=== PATIENT | female | born 1950 | race Caucasian/White ===

== ENCOUNTER 2020-05-10 08:07 | Outpatient (REF) | payer MEDICARE, OTHER, SELFPAY ==
--- NOTE | 2020-05-10 15:58 | MHC.AU.ANO ---
Adult Audiological Evaluation Date of Visit: 05/10/20 Reason for Appointment: Patient has begun to notice hearing difficulty in certain situations. She has trouble hearing her grandchildren and hearing when she is in noisy settings. She also noted difficulty with dialogue on TV. In 2010, patient received chemotherapy to treat ovarian cancer. One of the chemotherapy agents was carboplatin, which is potentially ototoxic. She reports that her hearing was tested prior to starting treatment, but it was not re-tested afterwards. Hearing Handicap Inventory: HHIE SCORE: 20 Based on HHIE score, patient has: Mild to moderate perceived hearing handicap Ear History: Ear Deformity: None Reported Recent Ear Drainage: None Reported Recent Ear Pain: None Reported Family History of Hearing Loss?: Yes: Mother, Grandfather, Uncle Recent Ear Infections: None Reported Ear Infections in Childhood: None Reported History of Ear Wax Buildup: Both Ears Previous Ear Surgery: None Reported Bothersome Tinnitus/Ringing/Noises in Ears: None Reported Ear used on the phone: Right Ear Blocked/Full Sensation in Ear(s): None Reported History of occupational noise exposure?: No History: No Medical History: Medical History: Hypertension, Ovarian Cancer in 2011, Tonsillectomy as a child Otoscopy: Right Ear: Completely occluded- cerumen removal performed Left Ear: Completely occluded- cerumen removal performed Tympanometry: Tympanometry performed due to: To assess integrity of the middle ear system Right Ear: Reduced Middle Ear Compliance (Type As) Left Ear: Reduced Middle Ear Compliance (Type As) Hearing Evaluation: Transducer(s) Used: Circumaural Headphones Method: Conventional Audiometry Stimuli Used: Pure Tones Right Ear: Description of Hearing: Borderline-normal sloping to severe sensorineural hearing loss Left Ear: Description of Hearing: Borderline-normal sloping to severe sensorineural hearing loss Speech Recognition Threshold (SRT): Method Used: Recorded Lists Stimuli Used: Spondee Words Right Ear: 40 dBHL Left Ear: 35 dBHL Word Discrimination: Method: Recorded Lists Word Lists Used: NU-6 Right Ear: 96% at 75 dBHL Left Ear: 96% at 75 dBHL Most Comfortable Level (MCL): Right Ear: 75 dBHL Left Ear: 75 dBHL Recommendations: Audiological re-evaluation in one year. Patient does not feel she is ready for amplification at this time. If she feels her hearing loss is starting to have more of an impact on her day-to-day life and communication, she is welcome to schedule a hearing aid evaluation. Cerumen removal was performed today. Slight irritation noted in right ear after procedure. No irritation in left ear. There is deepr cerumen that still remains in the canal; however, tympanic membrane can now be visualized bilaterally. Use of ear wax drops, such as EarWaxMD or Debrox, is advised to help dissolve the remaining deeper wax, and to prevent future occlusions. Diagnosis: Primary Diagnosis: H90.3 Bilateral Sensorineural Hearing Loss Services Performed: Comprehensive Audiological Evaluation (CPT 96888), Tympanometry (CPT 43430) Signature: Provider: Paras Hendricks, CCC-A
== END 2020-05-10 08:08 | disposition home or self-care (01) ==
LOC: HO.SH 08:07
PROVIDERS: Visit Provider Internal Medicine
DX: H90.3 Sensorineural hearing loss, bilateral (principal)
CPT/HCPCS: 92557; 92567

== ENCOUNTER 2020-06-20 06:58 | Outpatient (REF) | payer MEDICARE, OTHER, SELFPAY ==
[2020-06-20 08:17] LABS: MANUAL DIFF FLAG NO
[2020-06-20 08:25] LABS: Basophils Percent Auto 0.6 % (0-2); Eosinophils Absolute Auto 0.6 X10*3/uL (0.0-0.4); Eosinophils Percent Auto 8.3 % (0-4); Hemoglobin 13.1 g/dl (12.0-16.0); Imm Gran Abs Auto 0.03 X10*3/uL (0.00-0.03); Imm Gran Pct Auto 0.5 % (0.0-0.4); Lymphocytes Absolute Auto 2.3 X10*3/uL (1.2-4.9); Lymphocytes Percent Auto 34.4 % (20-40); Mean Corpuscular HGB Conc 32.8 g/dl (31.0-35.0); Mean Corpuscular Hemoglobin 29.7 pg (27.0-33.0); Mean Corpuscular Volume 90.7 fL (80-98); Monocytes Absolute Auto 0.5 X10*3/uL (0.1-1.2); Monocytes Percent Auto 7.5 % (2-11); Neutrophils Absolute Auto 3.2 X10*3/uL (2.0-8.3); Neutrophils Percent Auto 48.7 % (45-73); Platelet Count 326 X10*3/uL (160-400); Red Blood Count 4.41 X10*6/uL (4.20-5.50); Red Cell Distribution Width 12.8 % (11.0-16.0); White Blood Count 6.7 X10*3/uL (4.8-10.8)
[2020-06-20 08:46] LABS: Estimated Average Glucose 114 mg/dL; Hemoglobin A1c % 5.6 %
[2020-06-20 08:47] LABS: Alanine Aminotransferase 21 U/L (0-31); Albumin Level 4.3 g/dL (3.5-5.0); Alkaline Phosphatase 70 U/L (39-117); Anion Gap 13 (12-20); Aspartate Amino Transferase 21 U/L (5-31); Bilirubin Total 0.5 mg/dL (0.0-1.0); Blood Urea Nitrogen 27 mg/dL (9-16); Calcium 9.9 mg/dL (8.4-10.2); Carbon Dioxide 30 mmol/L (22-29); Chloride 104 mmol/L (96-108); Cholesterol 201 mg/dL; Estimated Glomerular Filt Rate > 60; Glucose Random 108 mg/dL (60-115); HDL Cholesterol 66 mg/dL; LDL Cholesterol Calculated 115 mg/dl; Potassium 4.4 mmol/L (3.3-5.1); Sodium 143 mmol/L (135-145); Total Protein 6.9 g/dL (6.5-8.0); Triglycerides 104 mg/dL
[2020-06-20 09:09] LABS: Thyroid Stimulating Hormone 1.52 uIU/mL (0.32-4.0); Vitamin D 25-OH Total 17.4 ng/mL (>30)
[2020-06-20 10:06] LABS: Vitamin B12 370 pg/mL (200-900)
== END 2020-06-20 06:59 | disposition home or self-care (01) ==
LOC: HO.LAB 06:58
PROVIDERS: PCP Internal Medicine; Visit Provider Internal Medicine
DX: R73.02 Impaired glucose tolerance (oral) (principal); I10 Essential (primary) hypertension; E78.00 Pure hypercholesterolemia, unspecified
CPT/HCPCS: 36415; 80053; 80061; 82306; 82607; 82746; 83036; 84439; 84443; 85025

== ENCOUNTER 2020-08-09 08:58 | Outpatient (REF) | payer MEDICARE, OTHER, SELFPAY ==
--- NOTE | ~2020-08-09 | MM_ITS ---
EXAMINATION: BONE DENSITOMETRY CLINICAL INDICATION: Other specified disorders of bone density and structure. COMPARISON: Previous BD dated 10/08/2017 and baseline BD dated 02/02/2012. TECHNIQUE: Using a [employer] DXA System (software version: 13.1) manufactured by [employer], dual-energy x-ray absorptiometry was performed of the lumbar spine and left hip. The images are of good technical quality. Summary results are attached. FINDINGS: AP SPINE L1-L4: Current: BMD 0.971 g/cm2, Z-score 0.1, T-score -1.7, osteopenia, 1.2% decrease from previous, 2.0% increase from baseline (<5% change is not significant). Prior: BMD 0.983 g/cm2. Baseline: BMD 0.952 g/cm2. LEFT FEMUR, NECK: Current: BMD 0.849 g/cm2, Z-score 0.5, T-score -1.4, osteopenia. Prior: BMD 0.870 g/cm2. Baseline: BMD 0.854 g/cm2. LEFT FEMUR, TOTAL: Current: BMD 0.849 g/cm2, Z-score 0.4, T-score -1.3, osteopenia, 2.7% decrease from previous, 0.7% decrease from baseline (<5% change is not significant). Prior: BMD 0.873 g/cm2. Baseline: BMD 0.855 g/cm2. IDENTIFIED RISK FACTORS: Thiazide, menopause, hysterectomy, bilateral oophorectomy. HISTORY OF FRACTURE: None listed. MEDICATIONS: Calcium supplements or multivitamin, vitamin D. MM/XR DEXA axial skeleton IMPRESSION: 1. DIAGNOSIS: Osteopenia based on the lowest T-score value of -1.7 in the lumbar spine applying World Health Organization criteria. 2. 10-YEAR FRACTURE RISK PREDICTION, FRAX: Major osteoporotic fracture (clinical spine, forearm, hip or shoulder) 10.3%. Hip fracture 1.5%. 3. Treatment Recommendations: NOF guidelines recommend consideration for treatment in postmenopausal women and men age 50 and older presenting with the following: -A hip or vertebral (clinical or morphometric) fracture. -T-score less than or equal to -2.5 at the femoral neck or spine after appropriate evaluation to exclude secondary causes. -Low bone mass at the hip or spine and a 10-year fracture probability by FRAX of greater than or equal to 3% for hip fracture or greater than or equal to 20% for major osteoporotic fracture based on the [place] adapted WHO algorithm. 4. Other Recommendations: All treatment decisions require clinical judgment and consideration of individual patient factors, including patient preferences, comorbidities, previous drug use, risk factors not captured in the FRAX model (e.g. frailty, falls, vitamin D deficiency, increased bone turnover, interval significant decline in bone density) and possible under or overestimation of fracture risk by FRAX. Additional medical evaluation for secondary cause of low bone mineral density may be appropriate. FUTURE SCAN RECOMMENDATION: People with diagnosed cases of osteoporosis or at high risk for fracture should have regular bone mineral density tests. For patients eligible for Medicare, routine testing is allowed once every 2 years. The testing frequency can be increased to one year for patients who have rapidly progressing disease, those who are receiving or discontinuing medical therapy to restore bone mass, or have additional risk factors.
== END 2020-08-09 08:59 | disposition home or self-care (01) ==
LOC: HO.MAMMO 08:58
PROVIDERS: PCP Internal Medicine; Visit Provider Internal Medicine
DX: Z13.820 Encounter for screening for osteoporosis (principal); M85.80 Other specified disorders of bone density and structure, unspecified site; Z78.0 Asymptomatic menopausal state; Z79.899 Other long term (current) drug therapy; Z98.890 Other specified postprocedural states
CPT/HCPCS: 77080

== ENCOUNTER 2021-09-24 06:01 | Outpatient (REF) | payer MEDICARE, OTHER, SELFPAY ==
[2021-09-24 06:16] LABS: MANUAL DIFF FLAG NO
[2021-09-24 07:33] LABS: Basophils Percent Auto 0.5 % (0-2); Eosinophils Absolute Auto 0.4 X10*3/uL (0.0-0.4); Eosinophils Percent Auto 5.2 % (0-4); Hematocrit 41.8 % (37.0-47.0); Hemoglobin 13.7 g/dl (12.0-16.0); Imm Gran Abs Auto 0.05 X10*3/uL (0.00-0.03); Imm Gran Pct Auto 0.7 % (0.0-0.4); Lymphocytes Absolute Auto 2.2 X10*3/uL (1.2-4.9); Lymphocytes Percent Auto 29.2 % (20-40); Mean Corpuscular HGB Conc 32.8 g/dl (31.0-35.0); Mean Corpuscular Hemoglobin 29.5 pg (27.0-33.0); Mean Corpuscular Volume 90.1 fL (80.0-98.0); Mean Platelet Volume 10.1 fL (9.4-12.3); Monocytes Absolute Auto 0.6 X10*3/uL (0.1-1.2); Monocytes Percent Auto 7.7 % (2-11); Neutrophils Absolute Auto 4.4 x10*3/uL (2.0-8.3); Neutrophils Percent Auto 56.7 % (45-73); Platelet Count 327 X10*3/uL (160-400); Red Blood Count 4.64 X10*6/uL (4.20-5.50); Red Cell Distribution Width 13.4 % (11.0-16.0); White Blood Count 7.7 X10*3/uL (4.8-10.8)
[2021-09-24 07:43] LABS: Estimated Average Glucose 117 mg/dL; Hemoglobin A1c % 5.7 %
[2021-09-24 07:55] LABS: Alanine Aminotransferase 16 U/L (0-31); Albumin Level 4.5 g/dL (3.5-5.0); Alkaline Phosphatase 76 U/L (39-117); Anion Gap 15 (12-20); Aspartate Amino Transferase 17 U/L (5-31); Bilirubin Total 0.6 mg/dL (0.0-1.0); Blood Urea Nitrogen 22 mg/dL (9-16); Calcium 9.7 mg/dL (8.4-10.2); Carbon Dioxide 27 mmol/L (22-29); Chloride 103 mmol/L (96-108); Cholesterol 218 mg/dL; Estimated Glomerular Filt Rate > 60; Glucose Random 107 mg/dL (60-115); HDL Cholesterol 69 mg/dL; LDL Cholesterol Calculated 122 mg/dl; Potassium 4.4 mmol/L (3.3-5.1); Sodium 141 mmol/L (135-145); Total Protein 7.3 g/dL (6.5-8.0); Triglycerides 139 mg/dL
[2021-09-24 08:20] LABS: Free T4 (Free Thyroxine) 0.93 ng/dL (0.71-1.85); Thyroid Stimulating Hormone 1.78 uIU/mL (0.32-4.0); Vitamin D 25-OH Total 20.9 ng/mL (>30)
[2021-09-24 08:28] LABS: Folate 14.2 ng/mL (> or = 4.0); Vitamin B12 355 pg/mL (200-900)
== END 2021-09-24 06:02 | disposition home or self-care (01) ==
LOC: HO.LAB 06:01
PROVIDERS: PCP Internal Medicine; Visit Provider Internal Medicine
DX: R73.02 Impaired glucose tolerance (oral) (principal); E78.00 Pure hypercholesterolemia, unspecified
CPT/HCPCS: 36415; 80053; 80061; 82306; 82607; 82746; 83036; 84439; 84443; 85025

== ENCOUNTER 2022-10-05 10:04 | Outpatient (AMB) | payer MEDICARE, OTHER, SELFPAY ==
[2022-10-05 10:07] VITALS: BP 126/82; PULSE 94; O2SAT 97; BMI 24.3
--- NOTE | 2022-10-05 10:07 | AM.OFFVISMDC ---
Intake Vital Signs 10/05/22 10:07 Height 5 ft 2 in Weight 133 lb BMI 24.3 BP 126/82 Blood Pressure Location Lt brachial Position Sitting Pulse 94 Pulse Source Pulse Oximeter Temp Source Skin Pulse Oximetry (%) 97 Oxygen Delivery Method Room Air Intake Visit Reasons: SWV Allergies No Known Allergies Allergy (Verified 10/03/21 16:02) Medication List - Last Reconciled 10/05/22 by Mikel Stewart MD Advair Diskus 250-50 mcg/dose (fluticasone propion-salmeterol) 1 ea PO BID NS albuterol sulfate 90 mcg/actuation (ProAir HFA) 2 puffs PO Q4H PRN amlodipine 5 mg PO DAILY atorvastatin 10 mg PO DAILY calcium carbonate (Calcium) 600 mg PO BID cholecalciferol (vitamin D3) 50 mcg PO DAILY hydrochlorothiazide 12.5 mg PO QAM Fall Risk Assessment Fall risk assessment: No Falls in past year Date Fall Risk Assessed: 10/05/22 HPI SWV HPI Details 72-year-old female with hypertension, asthma, hypercholesterolemia, impaired glucose tolerance osteopenia bone density done July 2020 coming in for annual well visit. Patient was last seen last year. Mammogram is due colonoscopy is due. Review of the notes had a CT scan done May 2022 of the abdomen impression of no evidence of recurrent or metastatic disease new 1.1 cm nodule on the right posterior bladder wall advised cystoscopy suspected severe spinal stenosis L4-L5. [facility] Medical History (Updated 10/05/22 @ 10:41 by Mikel Stewart MD) Asthma Hypercholesterolemia Hypertension Personal history of malignant neoplasm of other female genital organs Vitamin D deficiency Surgical History History of cataract surgery History of tonsillectomy S/P [facility] Social History (Updated 10/05/22 @ 10:40 by Mikel Stewart MD) Alcohol intake: current Alcohol intake frequency: a few times a week Patient Tobacco Use Status: Former Tobacco user Years Smoked: quit 1979 Questionnaire Medicare Wellness Checkup [age] What gender do you identify with?: female During the past 4 weeks, how much have you been bothered by emotional problems such as feeling anxious, depressed, irritable, sad or downhearted, and blue?: not at all During the past 4 weeks, has your physical & emotional health limited your social activities with family, friends, neighbors, or groups?: not at all During the past 4 weeks, how much bodily pain have you generally had?: no pain During the past 4 weeks, was someone available to help you if you needed & wanted help?: yes, as much as I wanted During the past 4 weeks, what was the hardest physical activity you could do for at least 2 minutes?: moderate Can you get to places out of walking distance without help? (For eg., can you travel alone on buses, taxis or drive your car?): Yes Can you go shopping for groceries or clothes without someone's help?: Yes Can you prepare your own meals?: Yes Can you do your housework without help?: Yes Because of any health problems, do you need the help of another person with your personal care needs such as eating, bathing, dressing or getting around the house?: No Can you handle your own money without help?: Yes During the past 4 weeks, how would you rate your health in general?: excellent During the past 4 weeks how have things been going for you?: very well; could hardly better Are you having difficulties driving your car?: no Do you always fasten your seat belt when you are in a car?: yes, usually During past 4 weeks, have you been bothered by the following: never: Falling or dizzy when standing up, Sexual problems?, Trouble eating well?, Teeth or denture problems?, Problems using the telephone? and Tiredness or fatigue? Have you fallen 2 or more times in the past year?: No Are you afraid of falling?: No Are you a smoker?: no During the past 4 weeks, how many drinks of wine, beer, or other alcoholic beverages did you have?: 1 drink or less per week Do you exercise for about 20 minutes 3 or more times a week?: yes, most of the time Have you been given information to help with the following?: no: Hazards in your house that might hurt you? and no: Keeping track of your medications? How often do you have trouble taking medicines the way you have been told to take them?: I always take medicine as prescribed How confident are you that you can control & manage most of your health problems?: very confident What is your race?: White PHQ-9 Over the last 2 weeks, how often have you been bothered by any of the following problems? 1. Little interest or pleasure in doing things: not at all 2. Feeling down, depressed, or hopeless: not at all 3. Trouble falling or staying asleep, or sleeping too much: not at all 4. Feeling tired or having little energy: not at all 5. Poor appetite or overeating: not at all 6. Feeling bad about yourself - or that you are a failure or have let yourself or your family down: not at all 7. Trouble concentrating on things, such as reading the newspaper or watching television: not at all 8. Moving or speaking so slowly that other people could have noticed. Or the opposite - being so fidgety or restless that you have been moving around a lot more than usual: not at all Depression Screening Interpretation: Negative Source: Developed by Drs. Luis Massey, Cassia Torres, Thiago Leung and colleagues, with an educational claudette from [employer]. ATILIO-7 AMB Questionnaire ATILIO-7 Date ATILIO - 7 assessed: 10/03/21 Feeling nervous, anxious, or on edge: 0 = Not at all Not being able to stop or control worryin = Not at all Worrying too much about different things: 0 = Not at all Trouble relaxin = Not at all Being so restless that it is hard to sit still: 0 = Not at all Becoming easily annoyed or irritable: 0 = Not at all Feeling afraid as if something awful might happen: 0 = Not at all Total ATILIO-7 score (0-4 normal; 5-9 mild; 10-14 moderate; 15-21 severe): 0 Source: Developed by Drs. Luis Massey, Cassia Torres, Thiago Leung and colleagues, with an educational claudette from [employer]. Thrive Questionnaire Date Thrive assessed: 10/03/21 Review of Systems Const Denies poor appetite and Denies weakness Eyes Denies no additional complaints ENT Reports Normal hearing present, Denies dizziness, Denies nasal congestion, Denies tinnitus and Denies sore throat Card Denies chest pain, Denies syncope, Denies rapid heart rate and Denies dyspnea Resp Denies cough and Denies dyspnea GI Denies change in stool character, Reports constipation, Denies diarrhea, Denies nausea and Denies vomiting Denies urinary frequency, Denies difficulty voiding and Denies dysuria Neuro Reports Normal hearing present, Denies confusion, Denies dizziness, Denies syncope and Denies weakness Psych Denies confusion Physical Exam Vital Signs: Last Vital Signs Pulse 94 10/05/22 10:07 BP 126/82 10/05/22 10:07 Pulse Ox 97 10/05/22 10:07 Oxygen Delivery Method Room Air 10/05/22 10:07 BMI result Body Mass Index 24.3 Const General: No confusion Orientation/consciousness: No confusion HEENT Other: impacted cerumen bilateral Head: Yes normocephalic Ears: external ears normal Face and sinus: Yes normal facial exam Mouth: moist mucous membranes Throat: Yes tonsils normal Eyes Conjunctivae: conjunctivae normal Pupils: Equal, round and reactive pupils present and Pupil accommodation reflex normal Direct Ophthalmoscopy: normal light reflex Neck Neck: No lymphadenopathy Thyroid: Thyroid normal Chest Chest palpation & inspection: normal inspection of the chest Resp Effort & Inspection: normal respiratory effort and no audible wheezes Auscultation: clear to auscultation bilaterally, no crackles, no wheezes and lung sounds not diminished Cardio Rate: regular rate Rhythm: regular rhythm Peripheral pulses: radial pulses present and dorsalis pedis present GI Palpation (GI): no masses Auscultation: normal bowel sounds and normoactive bowel sounds Rectal Exam - Female: deferred Skin General skin exam: no rashes or lesions noted Rashes: no rashes Neuro General: No confusion Cranial nerves: Yes Equal, round and reactive pupils present and Yes Normal hearing present Cognition (Neuro): normal cognition Gait exam (Neuro): Normal gait present Motor exam (neuro): 5/5 motor strength present throughout Deep tendon reflexes (DTR's): Right brachioradialis reflex intensity grade: 2+, Left brachioradialis reflex intensity grade: 2+, Right patellar reflex intensity grade: 2+ and Left patellar reflex intensity grade: 2+ Extrem General: No edema Assessment & Plan Assessment & Plan (1) Medicare annual wellness visit, subsequent: Code(s): Z00.00 - Encounter for general adult medical examination without abnormal findings (2) Personal history of malignant neoplasm of other female genital organs: Comment: [place]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 Harding, Dr. Esquivel May 2014 [address] scan August 2014 every 6 months, February 2016 clinical trial, CT scan abd [facility] 05/2020 Code(s): Z85.44 - Personal history of malignant neoplasm of other female genital organs Plan: CT scan done May 2022. (3) Osteopenia: Code(s): M85.80 - Other specified disorders of bone density and structure, unspecified site Plan: Discussed that patient is due for bone density (4) Impaired glucose tolerance: Code(s): R73.02 - Impaired glucose tolerance (oral) Plan: Decrease the amount of carbohydrate intake, pasta, bread, rice and potatoes are all sugar and that is aside from all the sweet stuff, remember that fruits are good but they are Sweet also. (5) Hypercholesterolemia: Code(s): E78.00 - Pure hypercholesterolemia, unspecified Plan: Avoid fried foods, chicken skin, eggs, butter margarine, pastries and meat. Be it pork or beef they have a lot of cholesterol patient is on atorvastatin 10 mg once a day (6) Asthma: Comment: Mild intermittent Code(s): J45.909 - Unspecified asthma, uncomplicated Qualifiers: Asthma severity: mild Asthma persistence: intermittent Asthma complication type: uncomplicated Qualified Code(s): J45.20 - Mild intermittent asthma, uncomplicated Plan: Continue with inhaler patient is on Advair rinse mouth after using (7) Hypertension: Code(s): I10 - Essential (primary) hypertension Qualifiers: Hypertension type: essential hypertension Qualified Code(s): I10 - Essential (primary) hypertension Plan: Continue with blood pressure medication. Decrease salt intake and exercise patient is taking amlodipine 5 mg once a day and hydrochlorothiazide 12.5 mg once a day (8) Lesion of bladder: Comment: Dr. Coyle 06/18/2022 bladder cancer - cystoscopy q 3 months Code(s): N32.9 - Bladder disorder, unspecified (9) Bladder cancer: Comment: Dr. Coyle 06/18/2022 bladder cancer - cystoscopy q 3 months Code(s): C67.9 - Malignant neoplasm of bladder, unspecified (10) Colon cancer screening: Code(s): Z12.11 - Encounter for screening for malignant neoplasm of colon (11) Hearing difficulty: Code(s): H91.90 - Unspecified hearing loss, unspecified ear (12) Impacted cerumen of both ears: Code(s): H61.23 - Impacted cerumen, bilateral Plan: will schedule for ear irrigation Orders: Orders XR DEXA axial skeleton Today M81.0 - Age-related osteoporosis without current pathological fracture, M85.80 - Other specified disorders of bone density and structure, unspecified site Vitamin B12 and Folate Today E78.00 - Pure hypercholesterolemia, unspecified Comprehensive Met. Panel Today R73.02 - Impaired glucose tolerance (oral) Hemoglobin A1c Today R73.02 - Impaired glucose tolerance (oral) Lipid Panel Today E78.00 - Pure hypercholesterolemia, unspecified Free T4 (Free Thyroxine) Today E78.00 - Pure hypercholesterolemia, unspecified Thyroid Stimulating Hormone Today E78.00 - Pure hypercholesterolemia, unspecified Vitamin D 25-OH Total Today E78.00 - Pure hypercholesterolemia, unspecified Complete Blood Count Auto Diff Today R73.02 - Impaired glucose tolerance (oral) Referrals Gastroenterology Referral Z12.11 - Encounter for screening for malignant neoplasm of colon Speech and Hearing Referral H91.90 - Unspecified hearing loss, unspecified ear Quality Reporting (2019) Fall Risk Screening ([facility] 139) Last assessed Fall Risk: 10/05/22 Fall risk assessment: No Falls in past year Coding Level of Care Code Medicare Subsequent (G0439) Diagnoses Medicare annual wellness visit, subsequent Z00.00 Personal history of malignant neoplasm of other female genital organs Z85.44 Osteopenia M85.80 Impaired glucose tolerance R73.02 Hypercholesterolemia E78.00 Asthma J45.20 Asthma severity: mild Asthma persistence: intermittent Asthma complication type: uncomplicated Hypertension I10 Hypertension type: essential hypertension Lesion of bladder N32.9 Bladder cancer C67.9 Colon cancer screening Z12.11 Hearing difficulty H91.90 Impacted cerumen of both ears H61.23
== END 2022-10-05 11:19 | disposition home or self-care (01) ==
PROVIDERS: Visit Provider Internal Medicine
DX: Z00.00 Encounter for general adult medical examination without abnormal findings (principal); Z85.44 Personal history of malignant neoplasm of other female genital organs; J45.20 Mild intermittent asthma, uncomplicated; I10 Essential (primary) hypertension; C67.9 Malignant neoplasm of bladder, unspecified; R73.02 Impaired glucose tolerance (oral); M85.80 Other specified disorders of bone density and structure, unspecified site; E78.00 Pure hypercholesterolemia, unspecified; N32.9 Bladder disorder, unspecified; Z12.11 Encounter for screening for malignant neoplasm of colon; H61.23 Impacted cerumen, bilateral
CPT/HCPCS: G0439

== ENCOUNTER 2022-10-09 07:46 | Outpatient (REF) | payer MEDICARE, OTHER, SELFPAY ==
[2022-10-09 07:57] LABS: MANUAL DIFF FLAG NO
[2022-10-09 08:12] LABS: Basophils Absolute Auto 0.1 X10*3/uL (0.0-0.2); Basophils Percent Auto 0.8 % (0-2); Eosinophils Absolute Auto 0.6 X10*3/uL (0.0-0.4); Eosinophils Percent Auto 7.6 % (0-4); Hematocrit 41.6 % (37.0-47.0); Hemoglobin 13.8 g/dl (12.0-16.0); Imm Gran Abs Auto 0.02 X10*3/uL (0.00-0.03); Imm Gran Pct Auto 0.3 % (0.0-0.4); Lymphocytes Absolute Auto 1.7 X10*3/uL (1.2-4.9); Lymphocytes Percent Auto 23.4 % (20-40); Mean Corpuscular HGB Conc 33.2 g/dl (31.0-35.0); Mean Corpuscular Hemoglobin 29.7 pg (27.0-33.0); Mean Corpuscular Volume 89.5 fL (80.0-98.0); Mean Platelet Volume 9.8 fL (9.4-12.3); Monocytes Absolute Auto 0.5 X10*3/uL (0.1-1.2); Monocytes Percent Auto 6.8 % (2-11); Neutrophils Absolute Auto 4.4 x10*3/uL (2.0-8.3); Neutrophils Percent Auto 61.1 % (45-73); Platelet Count 300 X10*3/uL (160-400); Red Blood Count 4.65 X10*6/uL (4.20-5.50); Red Cell Distribution Width 12.9 % (11.0-16.0); White Blood Count 7.2 X10*3/uL (4.8-10.8)
[2022-10-09 08:19] LABS: Estimated Average Glucose 114 mg/dL; Hemoglobin A1c % 5.6 %
[2022-10-09 08:51] LABS: Alanine Aminotransferase 18 U/L (0-31); Albumin Level 4.3 g/dL (3.5-5.0); Alkaline Phosphatase 81 U/L (39-117); Anion Gap 14 (12-20); Aspartate Amino Transferase 18 U/L (5-31); Bilirubin Total 0.5 mg/dL (0.0-1.0); Blood Urea Nitrogen 19 mg/dL (9-16); Calcium 9.9 mg/dL (8.4-10.2); Carbon Dioxide 28 mmol/L (22-29); Chloride 106 mmol/L (96-108); Cholesterol 201 mg/dL; Estimated Glomerular Filt Rate > 60; Glucose Random 117 mg/dL (60-115); HDL Cholesterol 65 mg/dL; LDL Cholesterol Calculated 112 mg/dl; Potassium 3.8 mmol/L (3.3-5.1); Sodium 144 mmol/L (135-145); Total Protein 7.2 g/dL (6.5-8.0); Triglycerides 121 mg/dL
[2022-10-09 09:07] LABS: Free T4 (Free Thyroxine) 0.85 ng/dL (0.71-1.85); Thyroid Stimulating Hormone 1.62 uIU/mL (0.32-4.0); Vitamin D 25-OH Total 24.9 ng/mL (>30)
[2022-10-09 09:20] LABS: Folate 13.1 ng/mL (> or = 4.0); Vitamin B12 572 pg/mL (200-900)
== END 2022-10-09 07:47 | disposition home or self-care (01) ==
LOC: HO.LAB 07:46
PROVIDERS: PCP Internal Medicine; Visit Provider Internal Medicine
DX: R73.02 Impaired glucose tolerance (oral) (principal); E78.00 Pure hypercholesterolemia, unspecified; M85.80 Other specified disorders of bone density and structure, unspecified site; E55.9 Vitamin D deficiency, unspecified
CPT/HCPCS: 36415; 80053; 80061; 82306; 82607; 82746; 83036; 84439; 84443; 85025

== ENCOUNTER 2022-10-19 13:13 | Outpatient (AMB) | payer MEDICARE, OTHER, SELFPAY ==
--- NOTE | 2022-10-19 13:24 | MHC.PC.OV ---
Vital Signs 10/19/22 13:38 Height 5 ft 2 in Weight 134 lb BMI 24.5 BP 104/66 Blood Pressure Location Lt brachial Position Sitting Pulse 82 Pulse Source Pulse Oximeter Pulse Oximetry (%) 99 Oxygen Delivery Method Room Air Intake Visit Reasons: ear irrigation Intake Note: pt is here for ear irrigation. 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 by: Self / Same As Patient Allergies No Known Allergies Allergy (Verified 10/19/22 13:42) Tobacco use date assessed: 10/19/22 Fall risk assessment: No Falls in past year Last assessed Fall Risk: 10/19/22 Dental Screening Dental Screen Date: 10/19/22 Did you have a dental visit in the last 12 months?: No Did you have a dental problem in the last 6 months where you did not have access to dental care?: No Was dental information given to patient?: Patient declined HPI HPI Comments History of Present Illness Details 72-year-old female with hypertension, asthma, hypercholesterolemia, impaired glucose tolerance osteopenia. APtient of Dr. Stewart presents today for bilateral ear lavage. [facility] Medical History (Updated 10/05/22 @ 10:41 by Mikel Stewart MD) Asthma Hypercholesterolemia Hypertension Personal history of malignant neoplasm of other female genital organs Vitamin D deficiency Surgical History History of cataract surgery History of tonsillectomy S/P [facility] Social History Housing: House Alcohol intake: current Alcohol intake frequency: a few times a week Patient Tobacco Use Status: Former Tobacco user Years Smoked: quit 1979 e-Cigarette/Vaping Use: Never Used service: No Current occupational status: retired Cognitive needs: No Hearing needs: No Vision needs: No Questionnaire Thrive Questionnaire Date Thrive assessed: 10/03/21 ATILIO-7 AMB Questionnaire ATILIO-7 Date ATILIO - 7 assessed: 10/03/21 Source: Developed by Drs. Luis Massey, Cassia Torres, Thiago Leung and colleagues, with an educational claudette from [employer]. Review of Systems ENT Denies dizziness, Denies otalgia and Denies disequilibrium Card Reports no additional complaints Resp Reports no additional complaints Neuro Denies dizziness and Denies disequilibrium Physical exam (Primary Care) Vital Signs: Last Vital Signs Pulse 82 10/19/22 13:38 BP 104/66 10/19/22 13:38 Pulse Ox 99 10/19/22 13:38 Oxygen Delivery Method Room Air 10/19/22 13:38 BMI result Body Mass Index 24.5 Tobacco/Smoking Status: Tobacco use Status Tobacco use date assessed 10/19/22 10/19/22 13:44 Patient Tobacco Use Status Former Tobacco user 10/19/22 13:25 e-Cigarette/Vaping Use Never Used 10/19/22 13:44 Thrive Assessment: Date of Thrive Assessment Date Thrive assessed 10/03/21 10/19/22 13:25 HENMT Head: Yes normocephalic and Yes atraumatic Ears: external ears normal and TM's normal bilaterally Face and sinus: Yes normal facial exam Eyes Conjunctivae: conjunctivae normal EOM: EOMs intact bilaterally Cardio Rate: regular rate Rhythm: regular rhythm Peripheral pulses: radial pulses present and dorsalis pedis present GI Inspection: Yes normal to inspection Palpation (GI): Soft to palpation, nontender and No hepatosplenomegaly present Auscultation: normoactive bowel sounds Office Procedures Cerumen Removal From which ear canal was the cerumen removed: bilateral Removal: irrigation Notes: patient tolerated procedure well [id number] Irrigation/Lavage Assessment and Plan Assessment & Plan (1) Hearing difficulty: Code(s): H91.90 - Unspecified hearing loss, unspecified ear Plan: hearing test previously ordered. (2) Cerumen impaction: Code(s): H61.20 - Impacted cerumen, unspecified ear Plan: Bilateral ears flushed, Left canal clear TM pearly, Right canal continues to be occluded with cerumen. Patient aba. procedure well, Denies pain, lightheadedness or dizziness. Plan Keep scheduled follow up with pcp or follow up sooner if needed. Coding Level of Care Code Est Pt Level 3 (91265) Diagnoses Hearing difficulty H91.90 Cerumen impaction H61.20 CPT Codes Office Procedure - CPT: 69905-Kfj Irrigation/Lavage ([id number])
[2022-10-19 13:38] VITALS: BP 104/66; PULSE 82; O2SAT 99; BMI 24.5
== END 2022-10-19 14:04 | disposition home or self-care (01) ==
PROVIDERS: PCP Internal Medicine; Visit Provider Nurse Practitioner Family
DX: H61.23 Impacted cerumen, bilateral (principal)
CPT/HCPCS: 69209; 99213

== ENCOUNTER 2022-10-23 09:20 | Outpatient (REF) | payer MEDICARE, OTHER, SELFPAY ==
--- NOTE | ~2022-10-23 | MM_ITS ---
EXAMINATION: BONE DENSITOMETRY CLINICAL INDICATION: Osteoporosis. COMPARISON: Previous BD dated 08/09/2020 and baseline BD dated 02/02/2012. TECHNIQUE: Using a [employer] DXA System (software version: 13.1) manufactured by [employer], dual-energy x-ray absorptiometry was performed of the lumbar spine and left hip. The images are of good technical quality. Summary results are attached. FINDINGS: LEFT FEMUR, NECK: Current: BMD 0.781 g/cm2, Z-score 0.1, T-score -1.9, osteopenia. Prior: BMD 0.849 g/cm2. Baseline: BMD 0.854 g/cm2. LEFT FEMUR, TOTAL: Current: BMD 0.860 g/cm2, Z-score 0.6, T-score -1.2, osteopenia, 1.3% increase from previous, 0.6% increase from baseline (<5% change is not significant). Prior: BMD 0.849 g/cm2. Baseline: BMD 0.855 g/cm2. AP SPINE L1-L4: Current: BMD 0.899 g/cm2, Z-score -0.4, T-score -2.3, osteopenia, 7.4% decrease from previous, 5.6% decrease from baseline (<5% change is not significant). Prior: BMD 0.971 g/cm2. Baseline: BMD 0.952 g/cm2. IDENTIFIED RISK FACTORS: Menopause, bilateral oophorectomy, hysterectomy, Thiazide. HISTORY OF FRACTURE: Wrist. MEDICATIONS: Calcium, vitamin D. MM/XR DEXA axial skeleton IMPRESSION: 1. DIAGNOSIS: Osteopenia based on the lowest T-score value of -2.3 in the lumbar spine applying World Health Organization criteria. 2. 10-YEAR FRACTURE RISK PREDICTION, FRAX: Major osteoporotic fracture (clinical spine, forearm, hip or shoulder) 12.5%. Hip fracture 2.9%. 3. Treatment Recommendations: NOF guidelines recommend consideration for treatment in postmenopausal women and men age 50 and older presenting with the following: -A hip or vertebral (clinical or morphometric) fracture. -T-score less than or equal to -2.5 at the femoral neck or spine after appropriate evaluation to exclude secondary causes. -Low bone mass at the hip or spine and a 10-year fracture probability by FRAX of greater than or equal to 3% for hip fracture or greater than or equal to 20% for major osteoporotic fracture based on the [place] adapted WHO algorithm. 4. Other Recommendations: All treatment decisions require clinical judgment and consideration of individual patient factors, including patient preferences, comorbidities, previous drug use, risk factors not captured in the FRAX model (e.g. frailty, falls, vitamin D deficiency, increased bone turnover, interval significant decline in bone density) and possible under or overestimation of fracture risk by FRAX. Additional medical evaluation for secondary cause of low bone mineral density may be appropriate. FUTURE SCAN RECOMMENDATION: People with diagnosed cases of osteoporosis or at high risk for fracture should have regular bone mineral density tests. For patients eligible for Medicare, routine testing is allowed once every 2 years. The testing frequency can be increased to one year for patients who have rapidly progressing disease, those who are receiving or discontinuing medical therapy to restore bone mass, or have additional risk factors.
== END 2022-10-23 09:21 | disposition home or self-care (01) ==
LOC: HO.MAMMO 09:20
PROVIDERS: PCP Internal Medicine; Visit Provider Internal Medicine
DX: Z13.820 Encounter for screening for osteoporosis (principal); M81.0 Age-related osteoporosis without current pathological fracture; Z78.0 Asymptomatic menopausal state; M85.80 Other specified disorders of bone density and structure, unspecified site
CPT/HCPCS: 77080

== ENCOUNTER → 2022-10-23 09:30 | Outpatient (BNV) | payer MEDICARE, OTHER, SELFPAY | PROVIDERS: PCP Internal Medicine; Visit Provider Radiology Diagnostic Radiology | DX: M85.89 Other specified disorders of bone density and structure, multiple sites (principal) | CPT/HCPCS: 77080 ==

== ENCOUNTER 2023-03-30 09:26 | Day surgery (SDC) | payer MEDICARE, OTHER, SELFPAY ==
[2023-03-26 11:30] VITALS: BMI 25.7
--- NOTE | 2023-03-29 09:23 | HO.ANESPROP2 ---
Documented by User: Eli Peres NP 03/29/23 09:23 HPI - Anesthesia Eval Consult details Narrative: 72yo F for Colonoscopy PMFSH Active Problems Active Problems: All Active Problems (Updated 03/26/23 @ 11:34 by Sarai Mcelroy RN) Hearing difficulty (Acute) Colon cancer screening (Acute) Bladder cancer (Acute) Lesion of bladder (Acute) Medicare annual wellness visit, subsequent (Acute) COVID-19 virus infection (Acute) Distal radius fracture, right (Acute) Impacted cerumen of both ears (Acute) Osteopenia (Acute) Impaired glucose tolerance (Acute) Medicare annual wellness visit, initial (Acute) Hearing loss (Acute) Personal history of malignant neoplasm of other female genital organs (Acute) Hypercholesterolemia (Acute) Asthma (Acute) Hypertension (Acute) Past Medical History Medical History (Updated 03/26/23 @ 11:34 by Sarai Mcelroy RN) Impaired glucose tolerance Bladder cancer Osteopenia Personal history of malignant neoplasm of other female genital organs Vitamin D deficiency Hypercholesterolemia Asthma Hypertension Surgical History Surgical History H/O colonoscopy Hx of cystoscopy History of cataract surgery History of tonsillectomy S/P REED-BSO Social History Social History (Updated 03/26/23 @ 11:30 by Sarai Mcelroy RN) Housing: House Alcohol intake: current Alcohol intake frequency: a few times a week Patient Tobacco Use Status: Former Tobacco user Years Smoked: quit 1979 e-Cigarette/Vaping Use: Never Used Are you DNR?: No Advance Directives: No Advance Directives Information Provided: Yes Nutrition Risks: No Nutritional Risk service: No Current occupational status: retired Cognitive needs: No Hearing needs: No Vision needs: No Meds Allergies Allergy/AdvReac Type Severity Reaction Status Date / Time No Known Allergies Allergy Verified 03/30/23 10:01 Home Medications Medication Instructions Recorded Confirmed Last Taken Type calcium carbonate 600 mg calcium 600 mg PO BID 05/31/20 03/26/23 Unknown History (1,500 mg) tablet (Calcium) cholecalciferol (vitamin D3) 50 50 mcg PO DAILY 05/31/20 03/26/23 Unknown History mcg (2,000 unit) capsule Exam Height,Weight and Vital Signs: Height 5 ft 1 in Weight 61.689 kg Assessment and Plan Assessment Anesthesia Assessment: Chart Reviewed Documented by User: Valerie Soares MD 03/30/23 10:49 PMF Past Medical History Medical History (Updated 03/26/23 @ 11:34 by Sarai Mcelroy RN) Impaired glucose tolerance Bladder cancer Osteopenia Personal history of malignant neoplasm of other female genital organs Vitamin D deficiency Hypercholesterolemia Asthma Hypertension Family History Family history of problems with anesthesia: No Surgical History Surgical History H/O colonoscopy Hx of cystoscopy History of cataract surgery History of tonsillectomy S/P REED-BSO History of Problems with Anesthesia: No Social History Social History (Updated 03/26/23 @ 11:30 by Sarai Mcelroy RN) Housing: House Alcohol intake: current Alcohol intake frequency: a few times a week Patient Tobacco Use Status: Former Tobacco user Years Smoked: quit 1979 e-Cigarette/Vaping Use: Never Used Are you DNR?: No Advance Directives: No Advance Directives Information Provided: Yes Nutrition Risks: No Nutritional Risk service: No Current occupational status: retired Cognitive needs: No Hearing needs: No Vision needs: No Meds Allergies Allergy/AdvReac Type Severity Reaction Status Date / Time No Known Allergies Allergy Verified 03/30/23 10:01 Home Medications Medication Instructions Recorded Confirmed Last Taken Type calcium carbonate 600 mg calcium 600 mg PO BID 05/31/20 03/26/23 Unknown History (1,500 mg) tablet (Calcium) cholecalciferol (vitamin D3) 50 50 mcg PO DAILY 05/31/20 03/26/23 Unknown History mcg (2,000 unit) capsule Exam Airway Mallampati Class: III TM Dist: >3cm Neck ROM: Full Assessment and Plan Assessment Anesthesia Assessment: Anesthesia Plan Discussed Final Anesthetic Review Family History of Problems with Anesthesia: No History of Problems with Anesthesia: No NPO: Yes ASA Class: III Final Preanesthetic Review: No Changes in Pt Med Stat, Meds/Allgs Chart Reviewed, Consent Obtained/Reviewed and Anes Risks/Benef Reviewed Patient Risk: Intermediate Procedure Risk: Low Anesthetic Plan Anesthetic Plan: TIVA Disposition: Standard PACU
[2023-03-30 09:46] VITALS: BMI 24.9
[2023-03-30 10:00] VITALS: BP 132/82; PULSE 82; RESP 18; TEMP 36.6; O2SAT 98
[2023-03-30] MEDS: Lactated Ringers 1,000 ML 100 ML IVCONT (10:02)
--- NOTE | 2023-03-30 10:59 | MHC.SHP ---
Pre-Procedural Eval Section A - 24 Hr Update-Section A only Date of Service: 03/30/23 Section B - Complete if H&P > 30 days Chief Complaint: screening Details of Present Illness: see H&P no changes Relevant Family History (Specify if Yes): No Relevant Social History: None Present Medications: None Medical History: Significant History History of Previous Operations: No relevant previous surgery Allergies: Allergies Allergy/AdvReac Type Severity Reaction Status Date / Time No Known Allergies Allergy Verified 03/30/23 10:01 Review of Systems Sugical H&P ROS: Negative: Constitution, Cardiovascular, Respiratory, Neurological, Psychiatric, Hem-Onc, Allergic/Immunologic, Gastrointestinal, Genitourinary, Musculoskeletal, Integumentary, Endocrine and Eyes/Ears/Nose/Throat Exam Surgical H&P Exam: Normal: HEENT, Normal: Heart, Normal: Lungs, Normal: Extremities, Normal: Abdomen, Normal: Skin and Normal: Neurological Plan Diagnosis/Plan: Unchanged I have reviewed the history and physical and performed a pertinent physical examination on my patient. No changes have occurred unless specified. Time Spent With Patient Time: Total time managing care of this patient today ____ minutes.
[2023-03-30 11:39] VITALS: BP 102/60; PULSE 81; RESP 16; TEMP 36.5; O2SAT 98
[2023-03-30 11:54] VITALS: BP 122/71; PULSE 79; RESP 14; O2SAT 99
--- NOTE | 2023-03-30 11:54 | OP_ITS ---
DATE OF SERVICE: 03/30/2023 SURGEON: Balbir Palma MD INDICATIONS: Colon cancer screening and family history of colon cancer. PREOPERATIVE DIAGNOSIS: POSTOPERATIVE DIAGNOSIS: PROCEDURE PERFORMED: Colonoscopy to the terminal ileum. ESTIMATED BLOOD LOSS: COMPLICATIONS: ANESTHESIA: Monitored anesthesia care. ASSISTANTS: SPECIMENS: DESCRIPTION OF PROCEDURE: A history and physical was performed. The risks and benefits of the procedure were explained to the patient. Informed consent was obtained. The patient was placed in the left lateral decubitus position. A digital rectal exam was performed and was found to be normal. The Olympus pediatric video colonoscope was introduced into the rectum and advanced to the cecum. The cecum was identified by transillumination, palpation, and identification of ileocecal valve. Examination was performed. The scope was removed. She tolerated the procedure well. Returned to the recovery area in stable condition. FINDINGS: The terminal ileum was briefly examined. This appeared normal. The visualized colonic mucosa was normal. The quality of the prep was good. No polyps were identified. Retroflexed examination showed small internal hemorrhoids. There was scattered diverticulosis throughout the colon. IMPRESSION: Normal colonoscopy. RECOMMENDATION: 1. Follow up as needed. 2. Repeat colonoscopy is not recommended based on age. MD JASON Ramirez/EZRA / [id number]
[2023-03-30 12:09] VITALS: BP 137/89; PULSE 77; RESP 15; TEMP 36.2; O2SAT 99
== END 2023-03-30 12:23 | disposition home or self-care (01) ==
PROVIDERS: PCP Internal Medicine; Visit Provider Internal Medicine Gastroenterology
PROC: 0DJD8ZZ Inspection of Lower Intestinal Tract, Via Natural or Artificial Opening Endoscopic (ICD-10-PCS; CPT 45378; principal; 2023-03-30 11:00)
DX: Z12.11 Encounter for screening for malignant neoplasm of colon (principal); Z80.0 Family history of malignant neoplasm of digestive organs; K57.30 Diverticulosis of large intestine without perforation or abscess without bleeding; K64.8 Other hemorrhoids; Z85.44 Personal history of malignant neoplasm of other female genital organs; Z92.21 Personal history of antineoplastic chemotherapy; I10 Essential (primary) hypertension; J45.909 Unspecified asthma, uncomplicated; E78.5 Hyperlipidemia, unspecified; E55.9 Vitamin D deficiency, unspecified; M85.80 Other specified disorders of bone density and structure, unspecified site; R73.9 Hyperglycemia, unspecified; Z79.899 Other long term (current) drug therapy
CPT/HCPCS: G0105; J2704

== ENCOUNTER 2023-06-18 10:21 | Outpatient (REF) | payer MEDICARE, OTHER, SELFPAY | END 2023-06-18 10:22 | disposition home or self-care (01) | LOC: HO.SH 10:21 | PROVIDERS: Visit Provider Internal Medicine | DX: Z01.118 Encounter for examination of ears and hearing with other abnormal findings (principal); H90.3 Sensorineural hearing loss, bilateral | CPT/HCPCS: 92552; 92556 ==

== ENCOUNTER 2023-06-18 15:15 | Outpatient (REF) | payer SELFPAY ==
--- NOTE | 2023-06-21 08:17 | MHC.AU.MED ---
Medical Clearance for Hearing Instrumentation Date: 06/21/23 Patient Name: Jing Basilio Date of : 1950 Primary Care Provider: Referring Provider: Mikel Stewart MD We have seen your patient on 06/21/23 and have determined that they are a candidate for amplification (See accompanying report). Specifically, they would benefit from: Hearing aid use in both ears There is a statute that addresses Medical Evaluation Requirements prior to fitting a patient with a hearing aid. According to [place] statute 265 CMR:6.03(1), (a) General. Except as provided in 265 CMR 6.03(1)(b), a early childhood worker shall not sell a hearing aid unless the prospective user has presented to the early childhood worker a written statement signed by a licensed physician that states that the patient's hearing loss has been medically evaluated and the patient may be considered a candidate for a hearing aid. The medical evaluation must have taken place within the preceding six months. Please note: Due to the [place] Statute referenced above, we cannot accept a signature other than that of a licensed physician. [employer] GL[employer] SP[employer]ER and [place] signatures cannot be accepted. I am in agreement with the above recommendation. There is no medical contraindication for hearing instrumentation. Physician Signature Date Physician Name (Printed)
== END 2023-06-18 15:16 | disposition home or self-care (01) ==
LOC: HO.HAP 15:15
PROVIDERS: Visit Provider Internal Medicine
DX: Z46.1 Encounter for fitting and adjustment of hearing aid (principal); H90.3 Sensorineural hearing loss, bilateral
CPT/HCPCS: 92590

== ENCOUNTER 2023-07-13 15:29 | Outpatient (REF) | payer SELFPAY | END 2023-07-13 15:30 | disposition home or self-care (01) | LOC: HO.HAP 15:29 | PROVIDERS: Visit Provider Internal Medicine | DX: Z46.1 Encounter for fitting and adjustment of hearing aid (principal); H90.3 Sensorineural hearing loss, bilateral | CPT/HCPCS: 92700; V5261; V5299 ==

== ENCOUNTER 2023-08-03 11:26 | Outpatient (REF) | payer SELFPAY | END 2023-08-03 11:27 | disposition home or self-care (01) | LOC: HO.HAP 11:26 | PROVIDERS: Visit Provider Internal Medicine | DX: Z13.89 Encounter for screening for other disorder (principal) ==

== ENCOUNTER 2023-10-26 14:46 | Outpatient (AMB) | payer MEDICARE, OTHER, SELFPAY ==
[2023-10-26 14:47] VITALS: BP 112/68; PULSE 89; O2SAT 99; BMI 25.5
--- NOTE | 2023-10-26 14:47 | A.OFFVIS_ITS ---
Intake Vital Signs 10/26/23 14:47 Height 5 ft 1 in Weight 135 lb BMI 25.5 BP 112/68 Blood Pressure Location Lt brachial Position Sitting Pulse 89 Pulse Source Pulse Oximeter Pulse Oximetry (%) 99 Oxygen Delivery Method Room Air Intake Visit Reasons: Medicare Wellness Visit [employer] Developer Required: No Allergies No Known Allergies Allergy (Verified 10/26/23 14:47) Medication List - Last Reconciled 10/26/23 by Kelly Elizabeth PA-C Advair Diskus 250-50 mcg/dose (fluticasone propion-salmeterol) 1 ea PO BID NS albuterol sulfate 90 mcg/actuation (ProAir HFA) 2 puffs PO Q4H PRN amlodipine 5 mg PO DAILY atorvastatin 10 mg PO DAILY calcium carbonate (Calcium 600) 600 mg PO BID cholecalciferol (vitamin D3) 50 mcg PO DAILY hydrochlorothiazide 12.5 mg PO QAM HPI Medicare Wellness Visit HPI Details 73-year-old female with past medical his tory of hypertension, asthma, hypercholesterolemia, impaired glucose tolerance, osteopenia, history of bladder cancer last seen by Dr. Stewart coming in for annual wellness visit.? Colonoscopy completed March 2023.? Mammogram completed October 2022. Today she tells us she does continue with cystoscopies every 3 months and her next 1 is scheduled for December 21. She also follows with [facility] hematology oncology for annual CT scans for history of fallopian tube cancer. She has no acute concerns today. [facility] Medical History Impaired glucose tolerance Bladder cancer Osteopenia Personal history of malignant neoplasm of other female genital organs Vitamin D deficiency Hypercholesterolemia Asthma Hypertension Surgical History H/O colonoscopy Hx of cystoscopy History of cataract surgery History of tonsillectomy S/P REED-BSO Social History Housing: House Alcohol intake: current Alcohol intake frequency: a few times a week Patient Tobacco Use Status: Former Tobacco user Years Smoked: quit 1979 e-Cigarette/Vaping Use: Never Used service: No Current occupational status: retired Cognitive needs: No Hearing needs: No Vision needs: No Questionnaire Medicare Wellness Checkup [age] What gender do you identify with?: female During the past 4 weeks, how much have you been bothered by emotional problems such as feeling anxious, depressed, irritable, sad or downhearted, and blue?: not at all During the past 4 weeks, has your physical & emotional health limited your social activities with family, friends, neighbors, or groups?: not at all During the past 4 weeks, how much bodily pain have you generally had?: very mild pain During the past 4 weeks, was someone available to help you if you needed & wanted help?: yes, as much as I wanted During the past 4 weeks, what was the hardest physical activity you could do for at least 2 minutes?: heavy Can you get to places out of walking distance without help? (For eg., can you travel alone on buses, taxis or drive your car?): Yes Can you go shopping for groceries or clothes without someone's help?: Yes Can you prepare your own meals?: Yes Can you do your housework without help?: Yes Because of any health problems, do you need the help of another person with your personal care needs such as eating, bathing, dressing or getting around the house?: No Can you handle your own money without help?: Yes During the past 4 weeks, how would you rate your health in general?: excellent During the past 4 weeks how have things been going for you?: very well; could hardly better Are you having difficulties driving your car?: no Do you always fasten your seat belt when you are in a car?: yes, usually During past 4 weeks, have you been bothered by the following: never: Falling or dizzy when standing up, Sexual problems?, Trouble eating well?, Teeth or denture problems? and Problems using the telephone? and seldom: Tiredness or fatigue? Have you fallen 2 or more times in the past year?: No Are you afraid of falling?: Yes Are you a smoker?: no During the past 4 weeks, how many drinks of wine, beer, or other alcoholic beverages did you have?: 2-5 drinks per week Do you exercise for about 20 minutes 3 or more times a week?: yes, most of the time Have you been given information to help with the following?: no: Hazards in your house that might hurt you? and no: Keeping track of your medications? How often do you have trouble taking medicines the way you have been told to take them?: I always take medicine as prescribed How confident are you that you can control & manage most of your health problems?: very confident What is your race?: White PHQ-9 Over the last 2 weeks, how often have you been bothered by any of the following problems? 1. Little interest or pleasure in doing things: not at all 2. Feeling down, depressed, or hopeless: not at all 3. Trouble falling or staying asleep, or sleeping too much: not at all 4. Feeling tired or having little energy: not at all 5. Poor appetite or overeating: not at all 6. Feeling bad about yourself - or that you are a failure or have let yourself or your family down: not at all 7. Trouble concentrating on things, such as reading the newspaper or watching television: not at all 8. Moving or speaking so slowly that other people could have noticed. Or the opposite - being so fidgety or restless that you have been moving around a lot more than usual: not at all Depression Screening Interpretation: Negative Depression Screening Done: Yes Source: Developed by Drs. Luis Massey, Cassia Torres, Thiago Leung and colleagues, with an educational claduette from [employer]. Review of Systems Const Denies body aches, Denies fatigue, Denies fever(s), Denies frequent falls, Denies headache(s) and Denies weakness Eyes Reports no additional complaints and Denies change in vision ENT Denies dysphagia, Denies dizziness, Denies facial pain, Denies headache(s), Denies nasal congestion and Denies odynophagia Card Denies chest pain, Denies syncope, Denies irregular heart rhythm, Denies leg edema, Denies lightheadedness and Denies dyspnea Resp Denies cough and Denies dyspnea GI Denies constipation, Denies dysphagia, Denies dyspepsia, Denies diarrhea, Denies nausea, Denies odynophagia and Denies vomiting Denies urinary frequency, Denies dysuria, Denies urinary hesitancy and Denies urinary urgency Musc Denies back pain and Denies myalgias Skin/Breast Details: mole on the back sometimes itchy Reports system reviewed and no additional complaints, except as documented Neuro Denies dizziness, Denies syncope, Denies frequent falls, Denies headache(s) and Denies weakness Psych Reports no additional complaints Endo Denies fatigue Physical Exam Vital Signs: Oxygen Delivery Method Room Air 10/26/23 14:47 Const General: cooperative, healthy appearing, comfortable and no acute distress Orientation/consciousness: patient oriented x3 HEENT Head: Yes normocephalic Ears: hearing grossly normal bilaterally, external ears normal, TM's normal bilaterally and Abnormal EAC present excessive cerumen bilateral General nose exam: Normal external nose present Face and sinus: Yes normal facial exam and Yes sinuses nontender Mouth: Normal oral and palatal mucosa present and tongue normal Throat: Yes posterior oropharynx normal Eyes General: appearance normal, both eyes and all related structures Conjunctivae: conjunctivae normal Pupils: Equal, round and reactive pupils present EOM: EOMs intact bilaterally and No Nystagmus present Neck Neck: Yes normal visual inspection, Yes full ROM and Yes no lymphadenopathy Chest Chest palpation & inspection: normal inspection of the chest Resp Effort & Inspection: normal respiratory effort Auscultation: clear to auscultation bilaterally, no crackles, no rales, no rhonchi, no wheezes and breath sounds present Cardio Rate: regular rate Rhythm: regular rhythm Peripheral pulses: radial pulses present and dorsalis pedis present GI Inspection: Yes normal to inspection and No Abdominal wall edema Palpation (GI): Soft to palpation, not firm and nontender Auscultation: normal bowel sounds Rectal Exam - Female: deferred General: Yes no CVA tenderness Back/Spine/Pelvis Back: no CVA tenderness Skin Other: Atypical raised nevi on left middle back Neuro General: patient oriented x3 Cranial nerves: Yes Equal, round and reactive pupils present, Yes Midline tongue present, Yes Ability to bilaterally elevate shoulders present and No Nystagmus present Gait exam (Neuro): Normal gait present Extrem General: Yes normal to inspection, Yes full ROM, No no pedal edema and No edema Psych Speech and movement: Normal speech and movement present Affect: normal affect Insight: Good insight present (Psych) Judgement: Good judgement present (Psych) Assessment & Plan Assessment & Plan (1) Bladder cancer: Comment: Dr. Coyle 06/18/2022 bladder cancer - cystoscopy q 3 months Code(s): C67.9 - Malignant neoplasm of bladder, unspecified Plan: Cystoscopy scheduled for December 21. (2) Medicare annual wellness visit, subsequent: Code(s): Z00.00 - Encounter for general adult medical examination without abnormal findings Plan: Patient is up-to-date on all routine screenings and vaccinations for her age. We will order updated blood work and follow up in 1 year or sooner if new problems arise. (3) Osteopenia: Code(s): M85.80 - Other specified disorders of bone density and structure, unspecified site Plan: Continue on calcium and vitamin D3 as well as light weight-bearing exercises. Bone density completed 10/2022 we will be due next year. (4) Impaired glucose tolerance: Code(s): R73.02 - Impaired glucose tolerance (oral) Plan: Decrease the amount of carbohydrates such as pasta, bread, rice, and potatoes and limit the amount of sweets. Although fruits are generally healthy they should be eaten in moderation as they are still high in sugar. Hemoglobin A1c goal of less than 7%. (5) Personal history of malignant neoplasm of other female genital organs: Comment: [place]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 Harding, Dr. Esquivel May 2014 [address] scan August 2014 every 6 months, February 2016 clinical trial, CT scan abd pel 05/2020 Code(s): Z85.44 - Personal history of malignant neoplasm of other female genital organs (6) Hypercholesterolemia: Code(s): E78.00 - Pure hypercholesterolemia, unspecified Plan: Avoid foods that are high in cholesterol such as red meat, fried foods, eggs and baked goods. Triglyceride goal of less than 150 and LDL goal of less than 100. Continue on atorvastatin (7) Asthma: Comment: Mild intermittent Code(s): J45.909 - Unspecified asthma, uncomplicated Qualifiers: Asthma severity: mild Asthma persistence: intermittent Asthma complication type: uncomplicated Qualified Code(s): J45.20 - Mild intermittent asthma, uncomplicated Plan: Asthma is well controlled on Advair Diskus twice daily and albuterol as needed. Continue to avoid triggers such as allergens or smoke. (8) Hypertension: Code(s): I10 - Essential (primary) hypertension Qualifiers: Hypertension type: essential hypertension Qualified Code(s): I10 - Essential (primary) hypertension Plan: Continue on amlodipine and hydrochlorothiazide. Avoid salt intake and encourage healthy diet and regular exercise. (9) Atypical nevi: Code(s): D22.9 - Melanocytic nevi, unspecified Plan: Patient has mole on her left middle back which has been present several months and does not bleed it is not painful. She does mentioned it itches occasionally. Recommended follow up with Dermatology however patient declined at this time. (10) Impacted cerumen of both ears: Code(s): H61.23 - Impacted cerumen, bilateral Plan: Patient has bilateral cerumen impaction with hard wax. Attempted to remove with curette today but was unable to. The schedule appointment for ear lavage in 2 weeks. Please use [facility] 4 days prior to your appointment. Plan This note was constructed using voice recognition software. While every effort has been made to ensure accuracy and cotton weigher, still areas may have been included sometimes these areas may affect the content or meeting of the given symptoms. Total time spent caring for the patient today was 30 minutes. This includes time spent before the visit reviewing the chart, time spent during the visit, and time spent after the visit and documentation. Orders: Orders Complete Blood Count Auto Diff Today Z00.00 - Encounter for general adult medical examination without abnormal findings Vitamin B12 and Folate Today Z00.00 - Encounter for general adult medical examination without abnormal findings Vitamin D 25-OH (D2 and D3) Today Z00.00 - Encounter for general adult medical examination without abnormal findings Comprehensive Met. Panel Today Z00.00 - Encounter for general adult medical examination without abnormal findings Lipid Panel Today Z00.00 - Encounter for general adult medical examination without abnormal findings Microalbumin, Random (w Creat) Today Z00.00 - Encounter for general adult medical examination without abnormal findings Free T4 (Free Thyroxine) Today Z00.00 - Encounter for general adult medical examination without abnormal findings TSH reflex Free T4 Today Z00.00 - Encounter for general adult medical examination without abnormal findings Coding Level of Care Code Medicare Subsequent (G0439) Diagnoses Bladder cancer C67.9 Medicare annual wellness visit, subsequent Z00.00 Osteopenia M85.80 Impaired glucose tolerance R73.02 Personal history of malignant neoplasm of other female genital organs Z85.44 Hypercholesterolemia E78.00 Mild intermittent asthma without complication J45.20 Asthma severity: mild Asthma persistence: intermittent Asthma complication type: uncomplicated Essential hypertension I10 Hypertension type: essential hypertension Atypical nevi D22.9 Impacted cerumen of both ears H61.23 CPT Codes Advance Care Planning - Time spent: 1-15 minutes, on File ([id number]) Advance Care Planning Advance Care Planning discussion: Completed/Scanned Date of discussion: 10/26/23 Who was present: Patient Forms completed: Health Care Proxy and MOLST Time spent: 1-15 minutes, on File Actual minutes spent: 5 Did not discuss due to Cultural/Spiritual beliefs: No
== END 2023-10-26 15:22 | disposition home or self-care (01) ==
PROVIDERS: PCP Internal Medicine
DX: Z00.00 Encounter for general adult medical examination without abnormal findings (principal); C67.9 Malignant neoplasm of bladder, unspecified; M85.80 Other specified disorders of bone density and structure, unspecified site; R73.02 Impaired glucose tolerance (oral); Z85.44 Personal history of malignant neoplasm of other female genital organs; E78.00 Pure hypercholesterolemia, unspecified; J45.20 Mild intermittent asthma, uncomplicated; I10 Essential (primary) hypertension; D22.9 Melanocytic nevi, unspecified; H61.23 Impacted cerumen, bilateral
CPT/HCPCS: 1123F; G0439

== ENCOUNTER 2023-10-29 06:06 | Outpatient (REF) | payer MEDICARE, OTHER, SELFPAY ==
[2023-10-29 06:19] LABS: MANUAL DIFF FLAG NO
[2023-10-29 07:12] LABS: Basophils Percent Auto 0.6 % (0-2); Eosinophils Absolute Auto 0.2 X10*3/uL (0.0-0.4); Eosinophils Percent Auto 4.2 % (0-4); Hematocrit 39.3 % (37.0-47.0); Hemoglobin 12.7 g/dl (12.0-16.0); Imm Gran Abs Auto 0.04 X10*3/uL (0.00-0.03); Imm Gran Pct Auto 0.8 % (0.0-0.4); Lymphocytes Absolute Auto 1.6 X10*3/uL (1.2-4.9); Lymphocytes Percent Auto 29.8 % (20-40); Mean Corpuscular HGB Conc 32.3 g/dl (31.0-35.0); Mean Corpuscular Hemoglobin 30.1 pg (27.0-33.0); Mean Corpuscular Volume 93.1 fL (80.0-98.0); Mean Platelet Volume 9.8 fL (9.4-12.3); Monocytes Absolute Auto 0.5 X10*3/uL (0.1-1.2); Monocytes Percent Auto 9.9 % (2-11); Neutrophils Absolute Auto 2.9 x10*3/uL (2.0-8.3); Neutrophils Percent Auto 54.7 % (45-73); Platelet Count 307 X10*3/uL (160-400); Red Blood Count 4.22 X10*6/uL (4.20-5.50); Red Cell Distribution Width 12.8 % (11.0-16.0); White Blood Count 5.3 X10*3/uL (4.8-10.8)
[2023-10-29 07:25] LABS: Creatinine Urine 67.21 mg/dL; Microalbum/Creatinine Ratio Ur 26.7 ug/mg cr (<30)
[2023-10-29 07:48] LABS: Alanine Aminotransferase 27 U/L (0-31); Albumin Level 4.3 g/dL (3.5-5.0); Alkaline Phosphatase 76 U/L (39-117); Anion Gap 13 (12-20); Aspartate Amino Transferase 25 U/L (5-31); Bilirubin Total 0.3 mg/dL (0.0-1.0); Blood Urea Nitrogen 24 mg/dL (9-16); Calcium 9.9 mg/dL (8.4-10.2); Carbon Dioxide 28 mmol/L (22-29); Chloride 105 mmol/L (96-108); Cholesterol 183 mg/dL (<200); Estimated Glomerular Filt Rate > 60; Glucose Random 115 mg/dL (60-115); HDL Cholesterol 63 mg/dL (>40); LDL Cholesterol Calculated 100 mg/dL (<100); Sodium 142 mmol/L (135-145); Total Protein 7.2 g/dL (6.5-8.0); Triglycerides 103 mg/dL (<150)
[2023-10-29 08:05] LABS: Free T4 (Free Thyroxine) 0.84 ng/dL (0.71-1.85); TSH reflex Free T4 1.07 uIU/mL (0.32-4.0)
[2023-10-29 08:10] LABS: Folate 13.5 ng/mL (> or = 4.0); Vitamin B12 525 pg/mL (200-900)
[2023-11-05 15:03] LABS: Vitamin D 25-OH, D2 <4 ng/mL; Vitamin D 25-OH, D3 19 ng/mL; Vitamin D 25-OH, Total 19 ng/mL (30-100)
== END 2023-10-29 06:07 | disposition home or self-care (01) ==
LOC: HO.LAB 06:06
PROVIDERS: PCP Internal Medicine
DX: Z00.00 Encounter for general adult medical examination without abnormal findings (principal)
CPT/HCPCS: 36415; 80053; 80061; 82043; 82306; 82570; 82607; 82746; 84439; 84443; 85025

== ENCOUNTER 2023-11-09 08:52 | Outpatient (AMB) | payer MEDICARE, OTHER, SELFPAY ==
--- NOTE | 2023-11-09 09:02 | MHC.PC.OV ---
Vital Signs 11/09/23 09:04 Height 5 ft 1 in Weight 135 lb 4 oz BMI 25.6 BP 130/70 Blood Pressure Location Lt brachial Position Sitting Pulse 85 Pulse Source Pulse Oximeter Pulse Oximetry (%) 98 Oxygen Delivery Method Room Air Intake Visit Reasons: Ear Flushing Intake Note: Patient is here to follow up on ear flushing. [employer] Revenue Officer Required: No Car Retarder Operator: Not Required per policy Accompanied by: Self / Same As Patient Allergies No Known Allergies Allergy (Verified 11/09/23 09:03) Tobacco use date assessed: 11/09/23 Fall risk assessment: No Falls in past year Last assessed Fall Risk: 11/09/23 Dental Screening Dental Screen Date: 11/09/23 Did you have a dental visit in the last 12 months?: Yes Did you have a dental problem in the last 6 months where you did not have access to dental care?: No Was dental information given to patient?: Patient has dentist HPI Ear Flushing HPI Details 73-year-old female with past medical history of hypertension, asthma, hypercholesterolemia, impaired glucose tolerance, osteopenia, history of bladder cancer coming in for ear flushing. Patient states she has been using hearing aids and has been decreased heating bilaterally. [facility] Medical History Impaired glucose tolerance Bladder cancer Osteopenia Personal history of malignant neoplasm of other female genital organs Vitamin D deficiency Hypercholesterolemia Asthma Hypertension Surgical History H/O colonoscopy Hx of cystoscopy History of cataract surgery History of tonsillectomy S/P REED-BSO Social History Housing: House Alcohol intake: current Alcohol intake frequency: a few times a week Patient Tobacco Use Status: Former Tobacco user Years Smoked: quit 1979 e-Cigarette/Vaping Use: Never Used Second Hand Smoke Exposure: Yes service: No Current occupational status: retired Cognitive needs: No Hearing needs: No Vision needs: No Questionnaire Thrive Questionnaire Date Thrive assessed: 10/03/21 Are you currently unemployed and looking for a job?: No ATILIO-7 AMB Questionnaire ATILIO-7 Date ATILIO - 7 assessed: 10/03/21 Source: Developed by Cassia Mathur B.W. Brian, Thiago Leung and colleagues, with an educational claudette from [employer]. Review of Systems Const Denies fever(s) Eyes Reports no additional complaints ENT Details: Decreased hearing bilaterally Card Reports no additional complaints Resp Reports no additional complaints GI Reports no additional complaints Physical exam (Primary Care) Vital Signs: Last Vital Signs Pulse 85 11/09/23 09:04 BP 130/70 11/09/23 09:04 Pulse Ox 98 11/09/23 09:04 Oxygen Delivery Method Room Air 11/09/23 09:04 BMI result Body Mass Index 25.6 Tobacco/Smoking Status: Tobacco use Status Tobacco use date assessed 11/09/23 11/09/23 09:07 Patient Tobacco Use Status Former Tobacco user 11/09/23 09:07 e-Cigarette/Vaping Use Never Used 11/09/23 09:07 Thrive Assessment: Date of Thrive Assessment Date Thrive assessed 10/03/21 11/09/23 09:07 Const General: cooperative, healthy appearing, comfortable and no acute distress HENMT Head: Yes normocephalic Ears: hearing grossly normal bilaterally and Abnormal EAC present cerumen impaction bilateral General nose exam: Normal external nose present Eyes General: appearance normal, both eyes and all related structures Conjunctivae: conjunctivae normal Neck Neck: Yes full ROM and Yes no lymphadenopathy Resp Effort & Inspection: normal respiratory effort Cardio Rate: regular rate Psych Affect: normal affect Attitude: cooperative Insight: Good insight present (Psych) Judgement: Good judgement present (Psych) Office Procedures Cerumen Removal From which ear canal was the cerumen removed: bilateral Removal: irrigation and cerumen loop/spoon Notes: patient tolerated procedure well, no complications and ear canal clear [id number] Irrigation/Lavage Assessment and Plan Assessment & Plan (1) Impacted cerumen of both ears: Code(s): H61.23 - Impacted cerumen, bilateral Plan: Cerumen was removed successfully from bilateral ears using irrigation and lighted curette. Advised patient to continue using Debrox as needed for wax and may return as needed for irrigation. Patient tolerated the procedure well and noted an improvement in her hearing. Plan This note was constructed using voice recognition software. While every effort has been made to ensure accuracy and engineering vice president, still areas may have been included sometimes these areas may affect the content or meeting of the given symptoms. Total time spent caring for the patient today was 20 minutes. This includes time spent before the visit reviewing the chart, time spent during the visit, and time spent after the visit and documentation. Coding Level of Care Code Est Pt Level 3 (46364) Diagnoses Impacted cerumen of both ears H61.23 CPT Codes Office Procedure - CPT: 10153-Exr Irrigation/Lavage ([id number])
[2023-11-09 09:04] VITALS: BP 130/70; PULSE 85; O2SAT 98; BMI 25.6
== END 2023-11-09 09:47 | disposition home or self-care (01) ==
PROVIDERS: PCP Internal Medicine
DX: H61.23 Impacted cerumen, bilateral (principal)

== ENCOUNTER → 2023-11-09 08:52 | Outpatient (BNVA) | payer MEDICARE, OTHER, SELFPAY | PROVIDERS: PCP Internal Medicine | DX: H61.23 Impacted cerumen, bilateral (principal) | CPT/HCPCS: 69210; 99212 ==

== ENCOUNTER 2024-05-17 13:51 | Outpatient (AMB) | payer MEDICARE, OTHER, SELFPAY ==
--- NOTE | 2024-05-17 13:54 | MHC.PC.OV ---
Vital Signs 05/17/24 13:55 05/17/24 14:28 Height 5 ft 1 in Weight 136 lb BMI 25.7 BP 134/82 168/94 H Blood Pressure Location Lt brachial Lt brachial Position Sitting Sitting Pulse 102 H 104 H Pulse Source Pulse Oximeter Palpation Pulse Oximetry (%) 98 Oxygen Delivery Method Room Air Intake Visit Reasons: check her blood pressure and check her ears Aboriginal Ceremonial Celebrant Required: No Accompanied by: Self / Same As Patient Allergies No Known Allergies Allergy (Verified 05/17/24 14:21) Medication List - Last Reconciled 05/17/24 by Ari Flores MD Advair Diskus 250-50 mcg/dose (fluticasone propion-salmeterol) 1 ea PO BID NS albuterol sulfate 90 mcg/actuation (ProAir HFA) 2 puffs PO Q4H PRN amlodipine 5 mg PO DAILY atorvastatin 10 mg PO DAILY calcium carbonate (Calcium 600) 600 mg PO BID cholecalciferol (vitamin D3) 50 mcg PO DAILY hydrochlorothiazide 12.5 mg PO QAM Tobacco use date assessed: 05/17/24 Fall risk assessment: No Falls in past year Last assessed Fall Risk: 05/17/24 Dental Screening Dental Screen Date: 05/17/24 Did you have a dental visit in the last 12 months?: Yes Did you have a dental problem in the last 6 months where you did not have access to dental care?: No Was dental information given to patient?: Patient has dentist HPI check her blood pressure and check her ears HPI Details Patient comes in today for follow up of her blood pressure, which she states has been running high lately, with her systolic blood pressure going up as high as 170 to 180 mm at times States that she has been taking her blood pressure medications regularly - her current meds include HCTZ 12.5 mg QD and Amlodipine 5 mg QD States that she feels okay otherwise She denies any headaches or dizziness Denies any chest pains, no shortness of breath No nausea/ vomiting, no abdominal pain No change in bowel habits noted States that she will need both of her current BP med Rx refilled today She would also like to have her ears checked to be sure that she is not building up ear wax again to a point where she will need to have her ears flushed again [facility] Medical History (Updated 05/21/24 @ 17:03 by Ari Flores MD) Essential hypertension Impaired glucose tolerance Bladder cancer Osteopenia Personal history of malignant neoplasm of other female genital organs Vitamin D deficiency Hypercholesterolemia Asthma Hypertension Surgical History H/O colonoscopy Hx of cystoscopy History of cataract surgery History of tonsillectomy S/P REED-BSO Social History Housing: House Alcohol intake: current Alcohol intake frequency: a few times a week Patient Tobacco Use Status: Former Tobacco user Years Smoked: quit 1979 e-Cigarette/Vaping Use: Never Used Second Hand Smoke Exposure: Yes service: No Current occupational status: retired Cognitive needs: No Hearing needs: No Vision needs: No Questionnaire PHQ-9 Over the last 2 weeks, how often have you been bothered by any of the following problems? 1. Little interest or pleasure in doing things: not at all 2. Feeling down, depressed, or hopeless: not at all 3. Trouble falling or staying asleep, or sleeping too much: not at all 4. Feeling tired or having little energy: not at all 5. Poor appetite or overeating: not at all 6. Feeling bad about yourself - or that you are a failure or have let yourself or your family down: not at all 7. Trouble concentrating on things, such as reading the newspaper or watching television: not at all 8. Moving or speaking so slowly that other people could have noticed. Or the opposite - being so fidgety or restless that you have been moving around a lot more than usual: not at all Depression Screening Interpretation: Negative Depression Screening Done: Yes 92051 - PHQ-9 Billing: Yes Source: Developed by Drs. Luis Massey, Cassia Torres, Thiago Leung and colleagues, with an educational claudette from [employer]. Thrive Questionnaire Date Thrive assessed: 05/17/24 I am a: Patient What is your living situation today?: I have a steady place to live Within the past 12 months, did the food you bought not last and you didn't have the money to get more?: Never true Within the past 12 months, did you worry whether your food would run out before you got money to buy more?: Never true Do you have trouble paying for medicines?: No Do you have trouble getting transportation to medical appointments?: No Do you have trouble paying your heating and electricity bill?: No Do you have trouble taking care of your child, family member or friend?: No Do you have trouble with day-to-day activities such as bathing, preparing meals, shopping, managing finances, etc.?: No Are you currently unemployed and looking for a job?: No Are you interested in more education?: No Please select the resources that you would like help with: None Currently or been in a relationship where the following occur: No concerns reported THRIVE Score: 0 AUDIT C Alcohol Use Questionnaire (AUDIT-C) 1. How often do you have a drink containing alcohol?: Monthly or less 2. How many drinks containing alcohol do you have on a typical day when you are drinking?: 1 or 2 3. How often do you have six or more drinks on one occasion?: Never Total Score: 1 Score Reviewed/Action Taken: Yes ATILIO-7 AMB Questionnaire ATILIO-7 Date ATILIO - 7 assessed: 05/17/24 Feeling nervous, anxious, or on edge: 0 = Not at all Not being able to stop or control worryin = Not at all Worrying too much about different things: 0 = Not at all Trouble relaxin = Not at all Being so restless that it is hard to sit still: 0 = Not at all Becoming easily annoyed or irritable: 0 = Not at all Feeling afraid as if something awful might happen: 0 = Not at all Total ATILIO-7 score (0-4 normal; 5-9 mild; 10-14 moderate; 15-21 severe): 0 Source: Developed by Drs. Luis Massey, Cassia Torres, Thiago Leung and colleagues, with an educational claudette from [employer]. Review of Systems Const Denies chills, Denies fatigue, Denies fever(s) and Denies headache(s) ENT Denies dysphagia, Denies dizziness, Denies otalgia, Denies headache(s), Denies neck pain, Denies odynophagia and Denies sore throat Card Denies chest pain, Denies palpitations and Denies dyspnea Resp Denies chest congestion, Denies cough and Denies dyspnea GI Denies abdominal pain, Denies constipation, Denies dysphagia, Denies heartburn, Denies diarrhea, Denies nausea, Denies odynophagia and Denies vomiting Denies difficulty voiding, Denies nocturia, Denies dysuria and Denies urinary urgency Musc Denies back pain and Denies neck pain Skin/Breast Denies rash Neuro Denies dizziness and Denies headache(s) Endo Denies fatigue and Denies palpitations Physical exam (Primary Care) Vital Signs: Last Vital Signs Pulse 104 H 05/17/24 14:28 BP 168/94 H 05/17/24 14:28 Pulse Ox 98 05/17/24 13:55 Oxygen Delivery Method Room Air 05/17/24 13:55 BMI result Body Mass Index 25.7 Tobacco/Smoking Status: Tobacco use Status Tobacco use date assessed 05/17/24 05/17/24 13:57 Patient Tobacco Use Status Former Tobacco user 05/17/24 13:57 e-Cigarette/Vaping Use Never Used 05/17/24 13:57 Depression Screening Interpretation: Negative Thrive Assessment: Date of Thrive Assessment Date Thrive assessed 05/17/24 05/17/24 14:07 Currently or been in a relationship where the following occur: No concerns reported Const General: no acute distress and alert HENMT Ears: TM's normal bilaterally and EAC's normal Throat: Yes posterior oropharynx normal and Yes tonsils normal (no TP congestion) Neck Neck: Yes supple and No lymphadenopathy Thyroid: Thyroid normal Resp Auscultation: clear to auscultation bilaterally, no rales and no wheezes Cardio Rate: regular rate Rhythm: regular rhythm Heart sounds: no murmurs GI Palpation (GI): Soft to palpation and nontender Auscultation: normal bowel sounds General: Yes no CVA tenderness Back/Spine/Pelvis Back: no CVA tenderness Thoracic/Lumbar Spine: No lumbar spinal tenderness Skin Rashes: no rashes Extrem General: Yes no clubbing, cyanosis or edema Coding Level of Care Code Est Pt Level 4 (59390) Diagnoses Essential hypertension I10 Hypercholesterolemia E78.00 Mild intermittent asthma without complication J45.20 Asthma severity: mild Asthma persistence: intermittent Asthma complication type: uncomplicated Vitamin D deficiency E55.9 Additional Codes PHQ-9 - 41020 - PHQ-9 Billing: Yes ([id number]) Assessment & Plan Assessment & Plan (1) Essential hypertension: Code(s): I10 - Essential (primary) hypertension Category: Medical Plan: Reinforced low sodium diet - goal is systolic BP of at least 120 to 130 mm or less Continue Amlodipine 5 mg QD and HCTZ 12.5 mg QD - patient recalls that she had some swelling of her ankles and feet when her Amlodipine was at 10 mg daily dose in the past Per request, will go ahead and refill her Amlodipine and HCTZ Rx today Will start her additionally on Losartan 50 mg QD Patient is reminded to continue monitoring her blood pressure regularly and to check back if her blood pressure is still not at or close to goal over the next few months (2) Hypercholesterolemia: Code(s): E78.00 - Pure hypercholesterolemia, unspecified Category: Medical Plan: Reinforced low cholesterol diet Continue Atorvastatin 10 mg QD (3) Asthma: Comment: Mild intermittent Code(s): J45.909 - Unspecified asthma, uncomplicated Category: Medical Qualifiers: Asthma severity: mild Asthma persistence: intermittent Asthma complication type: uncomplicated Qualified Code(s): J45.20 - Mild intermittent asthma, uncomplicated Plan: Appears controlled Continue Advair Diskus 250-50 mcg 1 inhalation BID and Albuterol HFA 2 inhalations Q 6 hours PRN (4) Vitamin D deficiency: Code(s): E55.9 - Vitamin D deficiency, unspecified Category: Medical Plan: Continue Vitamin D3 2000 units QD Plan Patient is reassured that her ears are mostly clear of cerumen on ear exam today To return as scheduled in October 2024 for her annual wellness exam with her PCP Medications: New losartan 50 mg PO DAILY 90 days 90 tabs 1RF Changed From hydrochlorothiazide 12.5 mg PO QAM 90 tabs 2RF To hydrochlorothiazide 12.5 mg PO QAM 90 days 90 tabs 3RF From amlodipine 5 mg PO DAILY 90 tabs 2RF To amlodipine 5 mg PO DAILY 90 days 90 tabs 3RF
[2024-05-17 13:55] VITALS: BP 134/82; PULSE 102; O2SAT 98; BMI 25.7
[2024-05-17 14:28] VITALS: BP 168/94; PULSE 104
== END 2024-05-17 14:35 | disposition home or self-care (01) ==
LOC: HO.HMCH 13:52
PROVIDERS: PCP Internal Medicine; Visit Provider Internal Medicine
DX: I10 Essential (primary) hypertension (principal); E78.00 Pure hypercholesterolemia, unspecified; J45.20 Mild intermittent asthma, uncomplicated; E55.9 Vitamin D deficiency, unspecified

== ENCOUNTER → 2024-05-17 13:51 | Outpatient (BNVA) | payer MEDICARE, OTHER, SELFPAY | PROVIDERS: PCP Internal Medicine; Visit Provider Internal Medicine | DX: I10 Essential (primary) hypertension (principal); E78.00 Pure hypercholesterolemia, unspecified; J45.20 Mild intermittent asthma, uncomplicated; E55.9 Vitamin D deficiency, unspecified | CPT/HCPCS: 96127; 99212 ==

== ENCOUNTER → 2024-06-01 09:35 | Outpatient (BNVA) | payer MEDICARE, OTHER, SELFPAY | PROVIDERS: PCP Internal Medicine ==

== ENCOUNTER 2024-07-24 09:13 | Outpatient (AMB) | payer MEDICARE, OTHER, SELFPAY ==
--- NOTE | 2024-07-24 09:20 | A.OFFPC_ITS ---
Vital Signs 07/24/24 09:21 Height 5 ft 1 in Weight 141 lb 6 oz BMI 26.7 BP 110/72 Blood Pressure Location Lt brachial Position Sitting Pulse 66 Pulse Source Pulse Oximeter Temp 96.9 F Temp Source Temporal Artery Scan Pulse Oximetry (%) 96 Oxygen Delivery Method Room Air Intake Visit Reasons: BP 1 month f/u Intake Note: Patient is here to follow up on BP check. Mold Filler Plastic Dolls Required: No Custom Garment Designer: Not Required per policy Accompanied by: Self / Same As Patient Allergies No Known Allergies Allergy (Verified 07/24/24 09:21) Medication List - Last Reconciled 07/24/24 by Kelly Elizabeth PA-C Advair Diskus 250-50 mcg/dose (fluticasone propion-salmeterol) 1 ea PO BID NS albuterol sulfate 90 mcg/actuation (ProAir HFA) 2 puffs PO Q4H PRN amlodipine 10 mg PO DAILY atorvastatin 10 mg PO DAILY calcium carbonate (Calcium 600) 600 mg PO BID cholecalciferol (vitamin D3) 50 mcg PO DAILY hydrochlorothiazide 12.5 mg PO QAM 90 days losartan 50 mg PO DAILY 90 days metoprolol succinate ER 12.5 mg PO BID Tobacco use date assessed: 07/24/24 Fall risk assessment: No Falls in past year Last assessed Fall Risk: 07/24/24 Dental Screening Dental Screen Date: 05/17/24 HPI BP 1 month f/u HPI Details 74-year-old female with past medical his tory of hypertension, asthma, hypercholesterolemia, impaired glucose tolerance, osteopenia, history of bladder cancer last seen 04/[address] Flores coming in for follow up on blood pressure. At her last visit patient was continued on amlodipine and started on losartan 50 mg.?She saw [facility] 05/2024 for blood pressure check standing blood pressure has been improving but maintaining around 150/80. Presenting with postoperative follow-up and medication management needs. Following surgery on July 03, the patient experienced substantial postoperative weight gain. Returning to her hydrochlorothiazide regimen from July 18 has led to a noticeable reduction in fluid-related weight. This is also discussed with the surgeon. She was started on metoprolol postoperatively in the event she developed AFib and losartan was held by her surgeon. She has had better control of her blood pressure with the use of metoprolol, amlodipine and hydrochlorothiazide and denies any symptomatic highs or lows. Exacerbations in the patient's asthmatic symptoms post-surgery have necessitated the resumption of Advair and routine use of albuterol for management of wheezing and shortness of breath. [facility] Medical History Essential hypertension Impaired glucose tolerance Bladder cancer Osteopenia Personal history of malignant neoplasm of other female genital organs Vitamin D deficiency Hypercholesterolemia Asthma Hypertension Surgical History History of lobectomy of lung H/O colonoscopy Hx of cystoscopy History of cataract surgery History of tonsillectomy S/P REED-BSO Social History Housing: House Alcohol intake: current Alcohol intake frequency: a few times a week Patient Tobacco Use Status: Former Tobacco user Years Smoked: quit 1979 e-Cigarette/Vaping Use: Never Used Second Hand Smoke Exposure: Yes service: No Current occupational status: retired Cognitive needs: No Hearing needs: No Vision needs: No Questionnaire PHQ-9 Over the last 2 weeks, how often have you been bothered by any of the following problems? 1. Little interest or pleasure in doing things: not at all 2. Feeling down, depressed, or hopeless: not at all 3. Trouble falling or staying asleep, or sleeping too much: not at all 4. Feeling tired or having little energy: not at all 5. Poor appetite or overeating: not at all 6. Feeling bad about yourself - or that you are a failure or have let yourself or your family down: not at all 7. Trouble concentrating on things, such as reading the newspaper or watching television: not at all 8. Moving or speaking so slowly that other people could have noticed. Or the opposite - being so fidgety or restless that you have been moving around a lot more than usual: not at all 9. Thoughts that you would be better off or of hurting yourself in some way: not at all Total score: 0 Depression Screening Interpretation: Negative Depression Screening Done: Yes Source: Developed by Drs. Luis Massey, Cassia BThiago Parada and colleagues, with an educational claudette from [employer]. Thrive Questionnaire Date Thrive assessed: 07/17/24 I am a: Patient What is your living situation today?: I have a steady place to live Within the past 12 months, did the food you bought not last and you didn't have the money to get more?: Never true Within the past 12 months, did you worry whether your food would run out before you got money to buy more?: Never true Do you have trouble paying for medicines?: No Do you have trouble getting transportation to medical appointments?: No Do you have trouble paying your heating and electricity bill?: No Do you have trouble taking care of your child, family member or friend?: No Do you have trouble with day-to-day activities such as bathing, preparing meals, shopping, managing finances, etc.?: No Are you currently unemployed and looking for a job?: No Are you interested in more education?: No Please select the resources that you would like help with: None Currently or been in a relationship where the following occur: No concerns reported THRIVE Score: 0 AUDIT C Alcohol Use Questionnaire (AUDIT-C) 1. How often do you have a drink containing alcohol?: 2-3 times a week Total Score: 3 ATILIO-7 AMB Questionnaire ATILIO-7 Date ATILIO - 7 assessed: 05/17/24 Feeling nervous, anxious, or on edge: 0 = Not at all Not being able to stop or control worryin = Not at all Worrying too much about different things: 0 = Not at all Trouble relaxin = Not at all Being so restless that it is hard to sit still: 0 = Not at all Becoming easily annoyed or irritable: 0 = Not at all Feeling afraid as if something awful might happen: 0 = Not at all Total ATILIO-7 score (0-4 normal; 5-9 mild; 10-14 moderate; 15-21 severe): 0 Source: Developed by Drs. Luis Massey, Thiago Tim and colleagues, with an educational claudette from [employer]. Review of Systems Const Denies body aches, Denies chills, Denies fever(s), Denies headache(s) and Denies poor appetite Eyes Reports no additional complaints ENT Denies dysphagia, Denies dizziness, Denies headache(s) and Denies odynophagia Card Denies chest pain, Denies syncope, Denies edema, Denies irregular heart rhythm, Denies lightheadedness and Denies dyspnea Resp Denies cough and Denies dyspnea GI Denies abdominal pain, Denies constipation, Denies dysphagia, Denies diarrhea, Denies nausea, Denies odynophagia and Denies vomiting Reports no additional complaints Musc Reports no additional complaints and Denies abnormal gait Skin/Breast Reports system reviewed and no additional complaints, except as documented Neuro Denies abnormal gait, Denies dizziness, Denies syncope and Denies headache(s) Psych Reports no additional complaints Physical exam (Primary Care) Vital Signs: Last Vital Signs Temp 96.9 F 07/24/24 09:21 Pulse 66 07/24/24 09:21 BP 110/72 07/24/24 09:21 Pulse Ox 96 07/24/24 09:21 Oxygen Delivery Method Room Air 07/24/24 09:21 BMI result Body Mass Index 26.7 Tobacco/Smoking Status: Tobacco use Status Tobacco use date assessed 07/24/24 07/24/24 09:27 Patient Tobacco Use Status Former Tobacco user 07/24/24 09:27 e-Cigarette/Vaping Use Never Used 07/24/24 09:27 PHQ-9: PHQ-9 Score PHQ-9: Total score 0 07/24/24 09:42 Depression Screening Interpretation: Negative Thrive Assessment: Date of Thrive Assessment Date Thrive assessed 07/17/24 07/24/24 09:27 Currently or been in a relationship where the following occur: No concerns reported Const General: cooperative, healthy appearing, comfortable and no acute distress Orientation/consciousness: patient oriented x3 [facility] Head: Yes normocephalic Ears: hearing grossly normal bilaterally General nose exam: Normal external nose present Eyes General: appearance normal, both eyes and all related structures Conjunctivae: conjunctivae normal Neck Neck: Yes full ROM and Yes no lymphadenopathy Resp Effort & Inspection: normal respiratory effort Auscultation: clear to auscultation bilaterally, no crackles, no rales, no rhonchi and no wheezes Cardio Rate: regular rate Rhythm: regular rhythm Skin General skin exam: no rashes or lesions noted Neuro General: patient oriented x3 Gait exam (Neuro): Normal gait present Extrem General: Yes normal to inspection, Yes full ROM and No edema Psych Affect: normal affect Attitude: cooperative Insight: Good insight present (Psych) Judgement: Good judgement present (Psych) Coding Level of Care Code Est Pt Level 3 (67689) Diagnoses Essential hypertension I10 Mild intermittent asthma without complication J45.20 Asthma severity: mild Asthma persistence: intermittent Asthma complication type: uncomplicated Assessment & Plan Assessment & Plan (1) Essential hypertension: Code(s): I10 - Essential (primary) hypertension Category: Medical Plan: Continue on current blood pressure medication. Avoid salt intake and encourage healthy diet and regular exercise. Continue on current blood pressure medication. Avoid salt intake and encourage healthy diet and regular exercise. At this time continue to hold losartan as she is having good control of her blood pressure without this medication. Continue on metoprolol 12.5 twice daily, amlodipine 10 mg daily and hydrochlorothiazide 12.5 mg daily. Patient agrees to continue to monitor her blood pressure and reach out to the office if it should be over 140/90. (2) Asthma: Comment: Mild intermittent Code(s): J45.909 - Unspecified asthma, uncomplicated Category: Medical Qualifiers: Asthma severity: mild Asthma persistence: intermittent Asthma complication type: uncomplicated Qualified Code(s): J45.20 - Mild intermittent asthma, uncomplicated Plan: Asthma currently controlled on present medications. Continue on Advair twice daily and albuterol as needed.. Avoid triggers such as allergies. Patient did discuss new symptoms with her surgeon postoperatively who advised the use of asthma medications. Plan This note was constructed using voice recognition software. While every effort has been made to ensure accuracy and rangeland management specialist, still areas may have been included sometimes these areas may affect the content or meeting of the given symptoms. Total time spent caring for the patient today was 20 minutes. This includes time spent before the visit reviewing the chart, time spent during the visit, and time spent after the visit and documentation. Patient was informed and verbally consented to the use of an ambient scribe for clinic note documentation during this visit. Medications: Changed From albuterol sulfate 90 mcg/actuation (ProAir HFA) 2 puffs PO Q4H PRN 8.5 grams 0RF bronchospasm To albuterol sulfate 90 mcg/actuation 2 puffs PO Q4H PRN 8.5 grams 0RF bronchospasm Refilled Advair Diskus 250-50 mcg/dose (fluticasone propion-salmeterol) 1 ea PO BID 180 ea 3RF NS amlodipine 10 mg PO DAILY 90 tabs 1RF atorvastatin 10 mg PO DAILY 90 tabs 1RF On Hold losartan Hold Comment: Doctor's Order 50 mg PO DAILY 90 days 90 tabs 1RF
[2024-07-24 09:21] VITALS: BP 110/72; PULSE 66; TEMP 36.1; O2SAT 96; BMI 26.7
--- OUTSIDE RECORDS SUMMARY | 2024-07-24 09:52 | XMS_ITS ---
Author Organization [facility] Address [address] [place] [id number] Care Team Providers Care Property Officer Name Role Phone Mikel Stewart MD Primary Care Provider Balbir Knox Jr Unavailable Allergies Allergen (clinical drug ingredient) Drug/Non Drug Allergy documented on EMR Reaction Allergy Type Onset Date Status hayfever (uncoded) Unknown Allergy A ctive REASON FOR VISIT Patient presents today for a colon screening Medications Medication SIG (Take, Route, Frequency, Duration) Notes Start Date End Date Status amLODIPine Besylate 5 MG TAKE 1 TABLET B Y MOUTH DAILY Oral for 90 Active Atorvastatin Calcium 10 MG TAKE 1 TABLET BY MOUTH DAILY Oral for 90 Active Advair Diskus 250-50 MCG/ACT Inhalation for 90 Active hydroCHLOROthiazide 12.5 MG TAKE 1 TABLE T BY MOUTH EVERY MORNING Oral for 90 Active MiraLax (colon prep) 17 GM/SCOOP mixed with Gatorade or Crystal Light Orally begin at 5:00 p.m. the day before the procedure for 1 day 03/01/2023 Active Social History Tobacco Use: Social History Observation Description Date Details (start date - stop date) Never Smoker NA - NA Tobacco Use/Smoking Question Answer Notes Patient is a nonsmoker Alcohol Screen Question Answer Notes Did you have a drink contain ing alcohol in the past year? Yes How often did you have a dri nk containing alcohol in the past year? 2 to 3 times a week (3 points) How many drinks did you have on a typical day when you were drinking in the past year? 1 or 2 drinks (0 point) How often did you have 6 or more drinks on one occasion in the past year? Never (0 point) Points 3 Interpretation Positive Problems Problem Type SNOMED Code ICD Code Onset Dates Problem Status W/U Status Risk Notes Problem [id number] Colon cancer screening (Z12.11) Active confirmed Problem [id number] longterm current use of diuretic (Z79.899) Active confirmed Vital Signs Temperature 97.1 degrees Fahrenheit 03/01/19 24 Blood pressure systolic 000 mm Hg 03/01/19 24 Blood pressure diastolic 00 mm Hg 024 Height 5 ft 1 in in 03/01/2023 Weight 136 lbs 03/01/2023 BMI 25.69 kg/m2 03/01/2023 Encounters Encounter Location Date Provider Diagnosis [facility] [address] [place] [address] 03/01/2023 Balbir Palma Jr Colon cancer screening Z12.11 and longterm current use of diuretic Z79.899 Assessments Encounter Date Diagnosis (ICD Code) Assessment Notes Treatment Notes Treatment Clinical Notes Section Notes 03/01/2023 Colon cancer screening (ICD-10 - Z12.11) Colonoscopy material was printed We discussed colonoscopy today. We discussed risks and benefits of the procedure today. She understands these and agrees to proceed. She is advised stop diuretics the day before the procedure. 03/01/2023 longterm current use of diuretic (ICD-10 - Z79.899) We discussed colonoscopy today. We discussed risks and benefits of the procedure today. She understands these and agrees to proceed. She is advised stop diuretics the day before the procedure. Plan Of Treatment Medication Medication Name Sig Start Date Stop Date Notes MiraLax (colon prep) 17 GM/SCOOP mixed with Gatorade or Crystal Light Orally begin at 5:00 p.m. the day before the procedure for 1 day 03/01/2023 Treatment Notes Assessment Notes Colon cancer screening Colonoscopy mater ial was printed Future Test Test Name Order Date COLONOSCOPY 03/01/2023 Next Appt Details Follow Up: prn, Reason: Progress Notes * Jing JONES ADOB: [birth year] (72 yo F)Acc No.[id number]:03/01/2023 Progress Notes Patient:?Jing Jones A Provider:?Balbri Palma MD :[id number]???Age:72 Y???Sex:Female D ate:03/01/2023 Address: [address], [id number] Pcp:Mikel Stewart MD Subjective: * Chief Complaints: * ???1. Patient presents today for a colon screening. * HPI: ???New symptom(s):? The patient is a pleasant 72-year-old woman seen today for her preoperative colonoscopy visit. She has no complaints of rectal bleeding or change in her bowel habits. She does have a family history of colon cancer in her father. Her last colonoscopy was approximately 5 years ago with removal of a small polyp from the rectum. * ROS:?General/Constitutional:?Change in appetite?denies.?Fatigue?denies.?ENT:?Patient denies?difficulty swallowing.?Respiratory:?Patient denies?shortness of breath.?Cardiovascular:?Patient denies?chest pain.?Gastrointestinal:?Comments?See HPI for details.?Genitourinary:?Difficulty urinating?denies.?Incontinence?denies.?Musculoskeletal:?Patient denies?muscle aches.?Skin:?Patient denies?pruritis.?Neurologic:?Patient denies?low back pain.?Psychiatric:?Patient denies?mental or physical abuse.? * Medical History:?Asthma, Hyp ertension, Hyperlipidemia, Osteopenia, Elevated blood sugar, Vitamin D deficiency, Fallopian tube cancer, chemotherapy, Bladder tumor. * Surgical History:?Total abdo jelena hysterectomy/omentectomy 2010, Cystoscopy/resection bladder cancer 2022. * Family History:?Father: dece ased, diagnosed with HTN (hypertension), Colon cancer, Diabetes, Heart disease.?Mother: , diagnosed with HTN (hypertension), Colon cancer, Diabetes.? No family history of liver cancer. * Social History:?Tobacco Use:?Tobacco Use/Smoking?Patient is a?nonsmoker.?Drugs/Alcohol:?Alcohol Screen?Did you have a drink containing alcohol in the past year??Yes,?How often did you have a drink containing alcohol in the past year??2 to 3 times a week (3 points),?How many drinks did you have on a typical day when you were drinking in the past year??1 or 2 drinks (0 point),?How often did you have 6 or more drinks on one occasion in the past year??Never (0 point),?Points?3,?Interpretation?Positive.?Miscellaneous:?Marital status: . Occupation: retired. * Medications:?Taking amLODIPi ne Besylate 5 MG Tablet TAKE 1 TABLET BY MOUTH DAILY Oral , Taking Atorvastatin Calcium 10 MG Tablet TAKE 1 TABLET BY MOUTH DAILY Oral , Taking hydroCHLOROthiazide 12.5 MG Tablet TAKE 1 TABLET BY MOUTH EVERY MORNING Oral , Taking Advair Diskus 250-50 MCG/ACT Aerosol Powder Breath Activated Inhalation , Medication List reviewed and reconciled with the patient * Allergies:?Hayfever. Objective: * Vitals:?Wt: 136 lbs, Ht: 5 f t 1 in, BMI:25.69 Index, BP: 000/00 mm Hg, Temp: 97.1. * Examination: ???General Examination: ?GENERAL APPEARANCE:?in no acute distress.?HEAD:?normocephalic.?EYES:?sclera non-icteric.?ORAL CAVITY:?mucosa moist.?NECK/THYROID:?no lymphadenopathy.?SKIN:?anicteric.?HEART:?S1, S2 normal, no murmurs.?LUNGS:?clear to auscultation bilaterally.?CHEST:?normal shape and expansion.?ABDOMEN:?soft, nontender, nondistended, bowel sounds present, no organomegaly .?EXTREMITIES:?no clubbing, cyanosis, or edema.?PSYCH:?cognitive function intact.? Assessment: * Assessment: 1.?longterm current use of diuretic - Z79.899 (Primary)?2.?Colon cancer screening - Z12.11? We discussed colonoscopy tod ay. We discussed risks and benefits of the procedure today. She understands these and agrees to proceed. She is advised stop diuretics the day before the procedure. Plan: * Treatment: * Procedure Codes:?3017F COLOR ECTAL CA SCREEN DOC REV, G9903 Pt scrn tbco id as non user, G9744 PATIENT NOT ELIG D/T ACTIVE DX HTN * Preventive Medicine:? ??Counseling:?Care goal follow-up plan:?Above Normal BMI Follow-up?Giving encouragement to exercise,?BMI management provided?Yes.? ??Urinary Incontinence:?Urinary Incontinence?Assessment:?Absent,?Plan of care documented:?No, reason not specified.? * Follow Up:?prn * * Sign off status: Completed true * Provider:?Balbir Palma MD Date:?0 03/01/2023 Generated for Wali koehler/Arcadio/Abdiel on:?07/24/2024 09:52 AM EDT History and Physical Notes * HPI (History of Present Illness) Category Sub-Category Detail Notes Category Not es New symptom(s) The patient i s a pleasant 72-year-old woman seen today for her preoperative colonoscopy visit. She has no complaints of rectal bleeding or change in her bowel habits. She does have a family history of colon cancer in her father. Her last colonoscopy was approximately 5 years ago with removal of a small polyp from the rectum. Examination Category Sub-Category Detail Notes Category Not es General Examination GENERAL APPEARANCE: in no acute di stress HEAD: normocephalic EYES: sclera non-icteric NECK/THYROID: no lymphadenopathy HEART: S1, S2 normal, no mu rmurs CHEST: normal shape and exp ansion LUNGS: clear to auscultatio n bilaterally ABDOMEN: soft, nontender, non distended, bowel sounds present, no organomegaly SKIN: anicteric EXTREMITIES: no clubbing, cyanosi s, or edema PSYCH: cognitive function i ntact ORAL CAVITY: mucosa moist
== END 2024-07-24 10:05 | disposition home or self-care (01) ==
LOC: HO.HMCH 09:14
PROVIDERS: PCP Internal Medicine
DX: I10 Essential (primary) hypertension (principal); J45.20 Mild intermittent asthma, uncomplicated

== ENCOUNTER → 2024-07-24 09:13 | Outpatient (BNVA) | payer MEDICARE, OTHER, SELFPAY | PROVIDERS: PCP Internal Medicine | DX: I10 Essential (primary) hypertension (principal); J45.20 Mild intermittent asthma, uncomplicated | CPT/HCPCS: 99212 ==

== ENCOUNTER 2024-10-09 12:03 | Outpatient (AMB) | payer MEDICARE, OTHER, SELFPAY ==
--- NOTE | 2024-10-09 12:03 | A.OFFPC_ITS ---
Intake Visit Reasons: COVID pos. Allergies No Known Allergies Allergy (Verified 10/09/24 12:04) Medication List - Last Reconciled 10/09/24 by Mikel Stewart MD albuterol sulfate 90 mcg/actuation 2 puffs PO Q4H PRN amlodipine 10 mg PO DAILY atorvastatin 10 mg PO DAILY budesonide-formoterol 80-4.5 mcg/actuation (Symbicort) 1 inh inhalation BID hydrochlorothiazide 12.5 mg PO QAM 90 days losartan 50 mg PO DAILY 90 days Held on 07/24/24. Instructions: Doctor's Order metoprolol tartrate 12.5 mg (1/2 x 25 mg) PO BID nirmatrelvir-ritonavir 300 mg (150 mg x 2)-100 mg (Paxlovid) take TWO 150 mg tablets of nirmatrelvir with ONE 100 mg tablet of ritonavir twice daily for 5 days PO Tobacco use date assessed: 07/24/24 Fall risk assessment: No Falls in past year Last assessed Fall Risk: 10/09/24 Dental Screening Dental Screen Date: 05/17/24 HPI COVID pos. HPI Details nose congested no fevers, no sore throat,no cough PFSH Medical History Essential hypertension Impaired glucose tolerance Bladder cancer Osteopenia Personal history of malignant neoplasm of other female genital organs Vitamin D deficiency Hypercholesterolemia Asthma Hypertension Surgical History History of lobectomy of lung H/O colonoscopy Hx of cystoscopy History of cataract surgery History of tonsillectomy S/P REED-BSO Social History Housing: House Alcohol intake: current Alcohol intake frequency: a few times a week Patient Tobacco Use Status: Former Tobacco user Tobacco use type: Cigarette Years Smoked: quit 1979 e-Cigarette/Vaping Use: Never Used Second Hand Smoke Exposure: Yes service: No Current occupational status: retired Cognitive needs: No Hearing needs: No Vision needs: No Questionnaire Thrive Questionnaire Date Thrive assessed: 07/17/24 ATILIO-7 AMB Questionnaire ATILIO-7 Date ATILIO - 7 assessed: 05/17/24 Source: Developed by Drs. Luis Massey, Cassia Torres, Thiago Leung and colleagues, with an educational claudette from [employer]. Physical exam (Primary Care) Tobacco/Smoking Status: Tobacco use Status Tobacco use date assessed 07/24/24 10/09/24 12:04 Patient Tobacco Use Status Former Tobacco user 10/09/24 12:04 Tobacco use type Cigarette 10/09/24 12:04 e-Cigarette/Vaping Use Never Used 10/09/24 12:04 Thrive Assessment: Date of Thrive Assessment Date Thrive assessed 07/17/24 10/09/24 12:04 Telehealth Telehealth Telehealth Platform: Telephone Location of provider rendering services: practice address Location of patient: address on file Patient Identification confirmed using: Name, : Yes Telehealth method: voice only Patient verbally consented to treatment: Yes Patient verbally consented to billing insurance company: Yes Patient informed of any privacy concerns related to visit: Yes Minutes spent on Phone/Video with Pt.: 15 Coding Level of Care Code Tele Est Pt Level 3 (62286) Diagnoses COVID-19 virus infection U07.1 Assessment & Plan Assessment & Plan (1) COVID-19 virus infection: Comment: April 2021, September Code(s): U07.1 - COVID-19 Category: Medical Plan History of Present Illness The patient is a 74-year-old female presenting with a COVID-19 infection. She tested positive for COVID-19 today after experiencing nasal congestion, which began during the night. Her son had COVID-19 three days ago, and she had contact with him. The patient denies having fever, sore throat, or cough, but reports a very stuffy nose. The patient has a history of hypertension, hypercholesterolemia, and asthma. She was diagnosed with adenocarcinoma of the fallopian tube in 2010 and is currently being treated for lung cancer with Tagrisso. Her last blood work in 2023 showed normal renal function and blood counts. Review of Systems - General: Denies fever - ENT: Reports nasal congestion; Denies sore throat - Respiratory: Denies cough Plan The patient was advised to start on Paxlovid for her COVID-19 infection, considering her history of lung cancer and current treatment with Tagrisso. She was instructed to hold her Tagrisso and atorvastatin while taking the antiviral medication. The prescription for Paxlovid will be sent to the [facility] in [place]. The patient was reminded to maintain adequate hydration during her treatment. Patient was informed and verbally consented to the use of an ambient scribe for clinic note documentation during this visit. Discussion Notes I discussed with the patient the need to start Paxlovid for her COVID-19 infection, given her lung cancer history and current treatment with Tagrisso. I explained the importance of holding Tagrisso and atorvastatin during the antiviral treatment to avoid potential interactions. We agreed to send the prescription to her preferred pharmacy, and I emphasized the need for adequate hydration. Patient Instructions - Start taking Paxlovid as prescribed. - Hold Tagrisso and atorvastatin while on Paxlovid. - Drink plenty of water to stay hydrated. 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 Medications: New nirmatrelvir-ritonavir 300 mg (150 mg x 2)-100 mg (Paxlovid) take TWO 150 mg tablets of nirmatrelvir with ONE 100 mg tablet of ritonavir twice daily for 5 days PO 30 ea 0RF U07.1 - COVID-19
--- OUTSIDE RECORDS SUMMARY | 2024-10-09 13:16 | XMS_ITS | Patient Health Record ---
Author Organization [facility] Address [address] [place] [phone] Care Team Providers Care Program Admin Name Role Phone Mikel Stewart MD Primary Care Provider Balbir Knox Jr Unavailable Allergies Allergen (clinical drug ingredient) Drug/Non Drug Allergy documented on EMR Reaction Allergy Type Onset Date Status hayfever (uncoded) Unknown Allergy A ctive Reason For Referral No Information Medications Medication SIG (Take, Route, Frequency, Duration) [...] the procedure for 1 day 03/01/2023 Active Immunizations Vaccine Route Administration Date Status Comme nts Influenza Unknown 02/22/2023 Administered Social History Tobacco Use: Social History Observation [...] Problem Status W/U Status Risk Notes Problem [id number] Colon cancer screening (Z12.11) Active confirmed Problem [id number] longterm current use of diuretic (Z79.899) Active confirmed Plan Of Treatment Future Test Test Name Order Date COLONOSCOPY 03/01/2023 Insurance Providers Payer Name Payer Address Payer Phone Subscriber Number Group Number Insured Name Patient Relationship to Insured Coverage Start Date Coverage End Date MEDICARE OF [place] [address] [place] [address] [id number] Jing Basilio Self - patient is the insured [facility] [address] [place] [phone] [id number] Jing Basilio Self - patient is the insured Medical (General) History Medical History History ICD Code asthma Hypertension Hyperlipidemia Osteopenia Elevated blood sugar Vitamin D deficiency Fallopian tube cancer, chemotherapy Bladder tumor Surgical History Surgery Date(Month/Year) Total abdominal hysterectomy/omentectomy 2010 Cystoscopy/resection bladder cancer 2022
--- OUTSIDE RECORDS SUMMARY | 2024-10-09 13:16 | XMS_ITS | Encounter Summary ---
Author Organization [facility] Address [address] [place] [address] Care Team Providers Care Tumbling Barrel Painter Name Role Phone Physician, Pcp Unknown Primary Care Provider Mariam vailable Encounter Details Date Type Department Care Team (Late st Contact Info) Description 04/04/2024 Lab Requisition [facility] - Main Lab [address] [facility] [place] [address] Atul Coyle MD [address] [facility] [address] [place] [address] Personal history of malignant neoplasm of bladder Social History Tobacco Use Types Packs/Day Years Used Date Smoking Tobacco: Never Assessed Comments Unknown Sex and Gender Information Value Date Recorded Sex Assigned at Not on file Legal Sex Female 7:48 PM EST Gender Identity Not on file Sexual Orientation Not on file documented as of this encounter Plan of Treatment Not on file documented as of this encounter Procedures Procedure Name Priority Date/Time Associated Diagnosis Comments AP OUTSIDE CONSULT Routine 03/31/2024 12 :00 AM EST Personal history of malignant neoplasm of bladder documented in this encounter Results * Anatomic pathology outside consult (03/31/2024 12:00 AM EST) Final Diagnosis A. Urine, Voided, ([id number]): Negative for high grade urothelial carcinoma. 04/12/2024 4:04 PM EST [facility] Clinical Information History of bladder neoplasm (malignant) Z85.51 Urine cytology with reflex UroVysion (AUC/SHGUC) 04/12/2024 4:04 PM EST [facility] Gross Description A. Urine, Voided, ([id number]): Received is one ThinPrep slide for cytology. 04/12/2024 4:04 PM EST [facility] Disclaimer Unless otherwise specified, all tissue is 10% NB formalin fixed and paraffin embedded. Technical pathology services provided by [facility] [address] [facility] [address] [place] [address] (CLIA #[id number]/S kyle Mendez MD, Whiskey Regauger) 04/12/2024 4:04 PM EST [facility] Tissue Urine specimen from urethra / Unknown 03/31/2024 04/04/2024 11:03 AM EST us Atul Coyle MD LAB PATHOLOGY ORDERABLES Fi nal Result [facility] [address] [place] [address], documented in this encounter Visit Diagnoses Diagnosis Personal history of malignant neoplasm of bladder documented in this encounter Care Teams Tumbling Barrel Painter Relationship Specialty Start Date End Date Physician, Pcp Unknown PCP - General 08/09/24 documented as of this encounter
--- OUTSIDE RECORDS SUMMARY | 2024-10-09 13:16 | XMS_ITS | Encounter Summary ---
Author Organization [facility] Address [address] [place] [address] Phone Care Team Providers Care Java Support Engineer Name Role Phone Mikel Stewart MD Primary Care Provider [phone] Encounter Details Date Type Department Care Team (Late st Contact Info) Description 10/31/2020 Ancillary Orders [address] [address] Darek Whitfield PA-C [address] [place] [address] Orthopedics & Sports Medicine, [place] [address] [email or web address] Right wrist pain Social History Tobacco Use Types Packs/Day Years Used Date Smoking Tobacco: Never Smokeless Tobacco: Never Alcohol Use Standard Drinks/Week Comments Yes 0 (1 standard drink = 0.6 oz pur e alcohol) socially Comments Unknown Sex and Gender Information Value Date Recorded Sex Assigned at Not on file Legal Sex Female 5:11 PM EST Gender Identity Not on file Sexual Orientation Not on file documented as of this encounter Plan of Treatment Not on file documented as of this encounter Results * XR WRIST 2 VIEWS (RIGHT) (10/31/2020 3:46 PM EDT) Narrative SYSTEMGENERATED, DOCUMENTATION - 10/31/2020 3:46 PM EDT This image report has been auto-finalized and has not been read by a Radiologist. Interpretation has been included in the provider encounter note for this date of service. Darek Whitfield PA-C IMG XR UPPER EXTREMITY Final Result documented in this encounter Visit Diagnoses Diagnosis Right wrist pain Pain in joint, forearm Right wrist pain Pain in joint, forearm documented in this encounter Care Teams Java Support Engineer Relationship Specialty Start Date End Date Mikel Stewart MD [address] [place] [address] [address] [place] [address] PCP - General Internal Medicine 10/17/20 documented as of this encounter Additional Source Comments The information contained in this document represents components of the legal health record. It is not the complete legal health record.[facility]
== END 2024-10-09 13:27 | disposition home or self-care (01) ==
LOC: HO.HMCH 12:03
PROVIDERS: PCP Internal Medicine; Visit Provider Internal Medicine
DX: U07.1 COVID-19 (principal)

== ENCOUNTER 2024-10-31 07:57 | Outpatient (AMB) | payer MEDICARE, OTHER, SELFPAY ==
--- OUTSIDE RECORDS SUMMARY | 2020-10-17 10:01 | XMS_ITS | Encounter Summary ---
Author Organization [facility] Address [address] [place] [address] Phone Care Team Providers Care Online Services Manager Name Role Phone Mikel Stewart MD Primary Care Provider [phone] Encounter Details Date Type Department Care Team (Late st Contact Info) Description 10/17/2020 10:01 AM EDT Hospital Encounter [facility] [address] [place] [address] Falguni Lozano FNP [address] [place] [address] [email or web address] Social History Tobacco Use Types Packs/Day Years [...] intra-articular distal radial fracture asdescribed. Falguni Lozano AGRICULTURAL RESEARCHER IMG XR UPPER EXTREMITY Serena l Result documented in this encounter Visit Diagnoses Not on filedocumented in this encounter Care Teams Online Services Manager Relationship Specialty Start Date End Date Mikel Stewart MD [address] [place] [address] Drive [address] [place] [address] PCP - General Internal Medicine 10/17/20 documented as of this encounter Additional Source Comments The information contained in this document represents components of the legal health record. It is not the complete legal health record.[facility]
--- OUTSIDE RECORDS SUMMARY | 2024-10-31 08:05 | XMS_ITS | Encounter Summary ---
Author Organization [facility] Address [address] [place] [address] Care Team Providers Care Newborn Photographer Name Role Phone Physician, Pcp Unknown Primary Care Provider Mariam vailable Encounter Details Date Type Department Care Team (Late st Contact Info) Description 04/04/2024 Lab Requisition [facility] - Main Lab [address] [facility] [place] [address] Atul Coyle MD [address] [facility] [address] [place] [address] Personal history of malignant neoplasm of bladder [...] AM EST) Final Diagnosis A. Urine, Voided, ([id number]): Negative for high grade urothelial carcinoma. 04/12/2024 4:04 PM EST [facility] Clinical Information History of bladder neoplasm (malignant) Z85.51 Urine cytology with reflex UroVysion (AUC/SHGUC) 04/12/2024 4:04 PM EST [facility] Gross Description A. Urine, Voided, ([id number]): Received is one ThinPrep slide for cytology. 04/12/2024 4:04 PM EST [facility] Disclaimer Unless otherwise specified, all tissue is 10% NB formalin fixed and paraffin embedded. Technical pathology services provided by [facility] [address] [facility] [address] [place] [address] (CLIA #[id number]/S kyle Mendez MD, Automatic Tire Tester) 04/12/2024 4:04 PM EST [facility] Tissue Urine specimen from urethra / Unknown 03/31/2024 04/04/2024 11:03 AM EST us Atul Coyle MD LAB PATHOLOGY ORDERABLES Fi nal Result [facility] [address] [place] [address], documented in this encounter Visit Diagnoses Diagnosis Personal history of malignant neoplasm of bladder documented in this encounter Care Teams Newborn Photographer Relationship Specialty Start Date End Date Physician, Pcp Unknown PCP - General 08/09/24 documented as of this encounter
--- OUTSIDE RECORDS SUMMARY | 2024-10-31 08:05 | XMS_ITS | Encounter Summary ---
Author Organization [facility] Address [address] [place] [address] Care Team Providers Care Cardiologist Name Role Phone Physician, Pcp Unknown Primary Care Provider Mariam vailable Encounter Details Date Type Department Care Team (Late st Contact Info) Description 08/09/2024 Lab Requisition [facility] - Main Lab [address] [facility] [place] [address] Atul Coyle MD [address] [facility] [address] [place] [address] Personal history of malignant neoplasm of bladder [...] Associated Diagnosis Comments AP OUTSIDE CONSULT Routine 08/02/2024 12 :00 AM EDT Personal history of malignant neoplasm of bladder documented in this encounter Results * Anatomic pathology outside consult (08/02/2024 12:00 AM EDT) Final Diagnosis A. Urine, Voided, ([id number]): Negative for high grade urothelial carcinoma. Results of UroVysion fluorescence in situ hybridization (FISH) testing: CEP3: Normal CEP7: Normal CEP17: Normal LSI 9p21: Normal Interpretation: Normal profile Controls stained appropriately. Note: The results are intended as a screening device and should be interpreted in association with other clinical and pathological findings. 08/18/2024 9:34 AM EDT [facility] Clinical Information History of bladder neoplasm (malignant) Z85.51 Urine Cytology/FISH (now) 08/18/2024 9:34 AM EDT [facility] Gross Description A. Urine, Voided, ([id number]): Received one ThinPrep slide for cytology and one ThinPrep slide for UroVysion FISH 08/18/2024 9:34 AM EDT [facility] Disclaimer Unless otherwise specified, all tissue is 10% NB formalin fixed and paraffin embedded. Technical pathology services provided by [facility] at [address] [facility] [address], [place] [address] (CLIA #[id number]/Monet Mendez MD, Clinical Statistical Programmer) 08/18/2024 9:34 AM EDT [facility] Tissue Urine specimen from urethra / Unknown 08/02/2024 08/09/2024 3:21 PM EDT us Atul Coyle MD LAB PATHOLOGY ORDERABLES Fi nal Result [facility] [address] [place] [address], documented in this encounter Visit Diagnoses Diagnosis Personal history of malignant neoplasm of bladder documented in this encounter Care Teams Cardiologist Relationship Specialty Start Date End Date Physician, Pcp Unknown PCP - General 08/09/24 documented as of this encounter
--- OUTSIDE RECORDS SUMMARY | 2024-10-31 08:05 | XMS_ITS | Encounter Summary ---
Author Organization [facility] Address [address] [facility] [address] [place] [address] Phone Care Team Providers Care Awning Maker Name Role Phone Mikel Stewart MD Primary Care Provider [phone] Encounter Details Date Type Department Care Team (Late st Contact Info) Description 10/31/2020 Ancillary Orders [facility] Medicine [address] [place] [id number] Darek Whitfield PA-C [address] [place] [address] Orthopedics & Sports Medicine, [facility] [place], [place] [phone] [email or web address] Social History Tobacco Use Types Packs/Day Years [...] on file documented as of this encounter Visit Diagnoses Not on filedocumented in this encounter Care Teams Awning Maker Relationship Specialty Start Date End Date Mikel Stewart MD [address] [place] [phone] PCP - General Internal Medicine 10/17/20 documented as of this encounter Additional Source Comments The information contained in this document represents components of the legal health record. It is not the complete legal health record.[facility]
--- OUTSIDE RECORDS SUMMARY | 2024-10-31 08:05 | XMS_ITS | Clinical Summary ---
Author Organization [address] [facility] Address [address] [place] [address] Phone Care Team Providers Care Equipment Operation Instructor Name Role Phone Physician, Pcp Unknown Primary Care Provider Mariam vailable Encounters Date Type Department Care Team Description 08/09/2024 Lab Requisition [facility] - Main Lab [address] [facility] [place] [address] Atul Coyle MD Personal history of malignant neoplasm of bladder from Last 3 Months Social History Tobacco Use Types Packs/Day Years Used Date Smoking Tobacco: Never Assessed Comments Unknown Sex and Gender Information Value Date Recorded Sex Assigned at Not on file Legal Sex Female 7:48 PM EST Gender Identity Not on file Sexual Orientation Not on file Plan of Treatment Health Maintenance Due Date Last Done Comments DTaP,Tdap,and Td Vaccines (1 - Tdap) 07/21/1967 Pneumococcal Vaccine: 50+ Years (1 of 1 - PCV) 1998 Zoster Vaccines (1 of 2) 1998 Falls Risk Assessment 01/24/2022 Hepatitis C Screening 01/24/2022 Medicare Annual Wellness Visit 01/24/2022 Osteoporosis Screening (Bone Density Screening) 01/24/2022 Social Influencers of Health Screening 01/24/2022 RSV Immunization Adult Patients (1 - 1-dose 75+ series) 07/21/2023 COVID-19 Vaccine ( season) 2023 Depression Screening 02/23/2024 Influenza Vaccine (#1) 2024 Breast Cancer Screening Discontinued 04/29/19 24, 04/27/2022, 04/24/2021, Additional history exists HIB Vaccines Aged Out No longer eligi ble based on patient's age to complete this topic HPV Vaccines Aged Out No longer eligi ble based on patient's age to complete this topic Hepatitis A Vaccines Aged Out No long er eligible based on patient's age to complete this topic Hepatitis B Vaccines Aged Out No long er eligible based on patient's age to complete this topic IPV Vaccines Aged Out No longer eligi ble based on patient's age to complete this topic MMR Vaccines Aged Out No longer eligi ble based on patient's age to complete this topic Meningococcal ACWY Vaccine Aged Out N o longer eligible based on patient's age to complete this topic Meningococcal B Vaccine Aged Out No l onger eligible based on patient's age to complete this topic RSV Immunization Patients Under 20 months Aged Out No longer eligible based on patient's age to complete this topic Varicella Vaccines Aged Out No longer eligible based on patient's age to complete this topic Procedures Procedure Name Priority Date/Time Associated Diagnosis Comments AP OUTSIDE CONSULT Routine 08/02/2024 12 :00 AM EDT Personal history of malignant neoplasm of bladder BALBIR SCREENING DIGITAL Routine 04/29/2023 1:18 PM EST Encounter for screening mammogram for malignant neoplasm of breast from Last 3 Months or Most Recently Relevant to Health Maintenance Results * Anatomic pathology outside consult (08/02/2024 12:00 AM EDT) Final Diagnosis A. Urine, Voided, ([id number]): Negative for high grade urothelial carcinoma. Results of UroVysion fluorescence in situ hybridization (FISH) testing: CEP3: Normal CEP7: Normal CEP17: Normal LSI 9p21: Normal Interpretation: Normal profile Controls stained appropriately. Note: The results are intended as a screening device and should be interpreted in association with other clinical and pathological findings. 08/18/2024 9:34 AM EDT [facility] Clinical Information History of bladder neoplasm (malignant) Z85.51 Urine Cytology/FISH (now) 08/18/2024 9:34 AM EDT [facility] ([facility]) [facility] Gross Description A. Urine, Voided, ([id number]): Received one ThinPrep slide for cytology and one ThinPrep slide for UroVysion FISH 08/18/2024 9:34 AM EDT [facility] Disclaimer Unless otherwise specified, all tissue is 10% NB formalin fixed and paraffin embedded. Technical pathology services provided by [facility] at [address], [place] [address] (CLIA #[id number]/Monet Mendez MD, Ice Platform Supervisor) 08/18/2024 9:34 AM EDT [facility] Tissue Urine specimen from urethra / Unknown 08/02/2024 08/09/2024 3:21 PM EDT us Atul Coyle MD LAB PATHOLOGY ORDERABLES Fi nal Result [facility]) [facility] [address] [place] [address], * BALBIR SCREENING DIGITAL (04/29/2023 1:18 PM EST) Anatomical Region Laterality Modality Mammography 04/29/2023 9:06 AM EST Narrative 04/29/2023 1:18 PM EST [facility] Diagnostic Imaging Department [address] [place] [address] Patient: JONESJING A /Age/Sex: 1950 - 72 - F Unit#: [id number] Location/Status: SPDIMAM/REG CLI Mnemonic/Ordering Site: DIGSC/SPMAM Ordering Physician: FELTON ESQUIVEL MD [facility] Screening Digital - 04/29/23924 Report Status:Signed EXAM: [facility] Screening Digital EXAM DATE AND TIME: 04/29/2023 9:25 AM HISTORY: Screening. Sister had breast carcinoma at age 62. COMPARISON: 04/27/22, 04/24/21, 04/22/20 TECHNIQUE: Bilateral digital breast tomosynthesis was performed in the CC and MLO projections. Computer aided detection with Zauber 3D 3.1 was employed. TISSUE DENSITY: a. The breasts are almost entirely fatty. FINDINGS: No suspicious masses, grouped microcalcifications, or areas of architectural distortion are seen. The skin and vascularity are unremarkable. IMPRESSION: Stable mammographic appearance of the breasts. No evidence of malignancy is seen. A negative mammogram in the presence of a clinically suspicious palpable abnormality does not preclude the possibility of malignancy or alter the indications for biopsy. BI-RADS: Category 1: Negative RECOMMENDATION(S): 1: Routine screening mammogram BILATERAL in 1 year. Dictating Physician: LATHA CROW MD Electronically Signed by: LATHA CROW MD Dic Date/Time: 04/29/23 131 Sign date/Time: 04/29/23 1318 Procedure Note Latha Crow MD - 10/11/2023 [facility] Diagnostic Imaging Department [address] [place] [address] Patient: ROBERTJING A /Age/Sex: 1950 - 72 - F Unit#: [id number] Location/Status: SPDIMAM/REG CLI Mnemonic/Ordering Site: [facility] Ordering Physician: FELTON ESQUIVEL MD [facility] Screening Digital - 04/29/23 - 924 Report Status:Signed EXAM: [facility] Screening Digital EXAM DATE AND TIME: 04/29/2023 9:25 AM HISTORY: Screening. Sister had breast carcinoma at age 62. COMPARISON: 04/27/22, 04/24/21, 04/22/20 TECHNIQUE: Bilateral digital breast tomosynthesis was performed in the CCand MLO projections. Computer aided detection with Zauber 3D 3.1was employed. TISSUE DENSITY: a. The breasts are almost entirely fatty. FINDINGS: No suspicious masses, grouped microcalcifications, or areas ofarchitectural distortion are seen. The skin and vascularity are unremarkable. IMPRESSION: Stable mammographic appearance of the breasts. No evidence of malignancyis seen. A negative mammogram in the presence of a clinically suspicious palpable abnormality does not preclude the possibility of malignancy or alter the indications for biopsy. BI-RADS: Category 1: Negative RECOMMENDATION(S): 1: Routine screening mammogram BILATERAL in 1 year. Dictating Physician: LATHA CROW MD Electronically Signed by: LATHA CROW MD Dic Date/Time: 04/29/23 1318 Sign date/Time: 04/29/23 1318 Felton Esquivel MD IMG BI PROCEDURES Final Resu lt from Last 3 Months or Most Recently Relevant to Health Maintenance Insurance MEDICARE [facility] [address] [place] [address] Care Teams Equipment Operation Instructor Relationship Specialty Start Date End Date Physician, Pcp Unknown PCP - General 08/09/24
--- OUTSIDE RECORDS SUMMARY | 2024-10-31 08:05 | XMS_ITS | Patient Health Record ---
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 Plan Of Treatment Future Test Test Name Order Date COLONOSCOPY 03/01/2023 Insurance Providers Payer Name Payer Address Payer Phone Subscriber Number Group Number Insured Name Patient Relationship to Insured Coverage Start Date Coverage End Date MEDICARE OF [place] [address] [facility]1] [place] [address] [id number] Jing Basilio Self - patient is the insured [facility] [address] [place] [address] [id number] Jing Basilio Self - patient is the insured Medical (General) History Medical History History ICD Code asthma Hypertension Hyperlipidemia Osteopenia Elevated blood sugar Vitamin D deficiency Fallopian tube cancer, chemotherapy Bladder tumor Surgical History Surgery Date(Month/Year) Total abdominal hysterectomy/omentectomy 2010 Cystoscopy/resection bladder cancer 2022
--- OUTSIDE RECORDS SUMMARY | 2024-10-31 08:05 | XMS_ITS | Clinical Summary ---
Author Organization [facility] Address [address] [place] [phone] Phone Care Team Providers Care Bobbin Trucker Name Role Phone Mikel Stewart MD Primary Care Provider [phone] Allergies No known active allergies Medications hydroCHLOROthiaz tyler (HYDRODIURIL) 12.5 MG tablet Take 12.5 mg by mouth daily. Active amLODIPine (NORVASC) 5 MG tablet Take 5 mg by mouth daily. Active atorvastatin (LIPITOR) 10 MG tablet Take 10 mg by mouth daily. Active Active Problems No known active problems Social History Tobacco Use Types Packs/Day Years [...] on file Sexual Orientation Not on file Last Filed Vital Signs Vital Sign Reading Time Taken Comments Blood Pressure 128/82 10/17/2020 9:10 AM EDT Pulse 92 10/17/2020 9:10 AM EDT Temperature 36.7 C (98.1 F) 10/17/2020 9:10 AM EDT Respiratory Rate 18 10/17/2020 9:10 AM EDT Oxygen Saturation 99% 10/17/2020 9:10 AM EDT Inhaled Oxygen Concentration - - Weight 60.3 kg (133 lb) 11/26/2020 9:52 AM EDT Height 154.9 cm (5' 1 ) 11/26/2020 9:52 AM EDT Body Mass Index 25.13 11/26/2020 9:52 AM EDT Plan of Treatment Health Maintenance Due Date Last Done Comments Adult Td,Tdap Booster 1950 LIPID PANEL 1950 POTASSIUM LEVEL 1950 DEPRESSION SCREENING 1960 HEPATITIS C SCREENING 1966 OSTEOPOROSIS SCREENING INITI AL (ONE-TIME) 2013 RSV VACCINE (1 - 1-dose 75+ series) 07/21/2023 COVID-19 VACCINE (3 - 2023-2 5 season) 2023 05/08/2020, 04/16/2020 PNEUMOCOCCAL VACCINES (50+ years) Completed 01/31/2016, 11/01/2014 ZOSTER VACCINES Completed 12/13/2017, 10/06/2017, 11/08/2012 SMOKING STATUS SCREENING (On ce After 26 Yrs) Completed 01/20/2021 HEPATITIS A VACCINES Aged Out No long er eligible based on patient's age to complete this topic HIB VACCINES Aged Out No longer eligi ble based on patient's age to complete this topic MENINGOCOCCAL VACCINES (ACWY) Aged Out No longer eligible based on patient's age to complete this topic MENINGOCOCCAL VACCINES (B) Aged Out N o longer eligible based on patient's age to complete this topic Medical Devices Not on file Insurance MEDICARE PART A & B Member Subscriber Plan / Payer (Ef fective 2013-Present) Name:Jing Basilio Member ID:[id number] Relation to Subscriber:Self Name:Jing Basilio Subscriber ID:[id number] Payer ID:[id number] Group ID:Not on file Type:Medicare Address: [employer] [address] MEDICARE SUPPLEMENT MEDICARE PART A & B MEDICARE SUPPLEMENT MEDICARE PART A & B MEDICARE SUPPLEMENT MEDICARE PART A & B MEDICARE SUPPLEMENT MEDICARE PART A & B Member Subscriber Plan / Payer (Ef fective 2013-Present) Name:Jing Basilio Member ID:[id number] Relation to Subscriber:Self Name:Jing Basilio Subscriber ID:[id number] Payer ID:[id number] Group ID:Not on file Type:Medicare Address: [employer] [address] MEDICARE SUPPLEMENT MEDICARE PART A & B [id number] [place] [address] MEDICARE SUPPLEMENT MEDICARE PART A & B MEDICARE SUPPLEMENT MEDICARE PART A & B MEDICARE SUPPLEMENT MEDICARE PART A & B [facility] MEDICARE SUPPLEMENT Care Teams Bobbin Trucker Relationship Specialty Start Date End Date Mikel Stewart MD [address] [place] [phone] PCP - General Internal Medicine 10/17/20 Additional Source Comments The information contained in this document represents components of the legal health record. It is not the complete legal health record.[facility]
--- OUTSIDE RECORDS SUMMARY | 2024-10-31 08:05 | XMS_ITS | Encounter Summary ---
Author Organization [facility] Address [address] [place] [phone] Phone Care Team Providers Care Data Integration Architect Name Role Phone Mikel Stewart MD Primary Care Provider [phone] Encounter Details Date Type Department Care Team (Late st Contact Info) Description 10/31/2020 Ancillary Orders [address] [address] Darek Whitfield PA-C [address] [place] [address] Orthopedics & Sports Medicine, [place] [address] [email or web address] Right wrist pain Social History Tobacco Use [...] forearm documented in this encounter Care Teams Data Integration Architect Relationship Specialty Start Date End Date Mikel Stewart MD [address] [place] [address] [address] [place] [address] PCP - General Internal Medicine 10/17/20 documented as of this encounter Additional Source Comments The information contained in this document represents components of the legal health record. It is not the complete legal health record.[facility]
--- NOTE | 2024-10-31 08:08 | AM.OFFVISMDC ---
Intake Vital Signs 10/31/24 08:10 Height 5 ft 1 in Weight 134 lb 2 oz BMI 25.3 BP 110/60 Blood Pressure Location Lt brachial Position Sitting Pulse 74 Pulse Source Pulse Oximeter Temp 97.3 F Temp Source Temporal Artery Scan Pulse Oximetry (%) 99 Oxygen Delivery Method Room Air Intake Visit Reasons: SAWV Intake Note: Patient is here for an Annual Wellness Visit. Ditching Machine Engineer Required: No Lollypop Machine Operator: Lollypop Machine Operator offered & declined Accompanied by: Self / Same As Patient Allergies No Known Allergies Allergy (Verified 10/31/24 08:32) Medication List - Last Reconciled 10/31/24 by Kelly Elizabeth PA-C albuterol sulfate 90 mcg/actuation 2 puffs PO Q4H PRN amlodipine 10 mg PO DAILY atorvastatin 10 mg PO DAILY budesonide-formoterol 80-4.5 mcg/actuation (Symbicort) 1 inh inhalation BID hydrochlorothiazide 12.5 mg PO QAM 90 days metoprolol tartrate 12.5 mg (1/2 x 25 mg) PO BID osimertinib (Tagrisso) 80 mg PO DAILY HPI SAWV HPI Details 74-year-old female with past medical history of hypertension, asthma, hypercholesterolemia, impaired glucose tolerance, osteopenia, history of bladder cancer last seen 09/[address] Stewart coming in for annual wellness visit. Presenting with a routine follow-up and preventative care assessment. The patient contracted COVID-19 after exposure from her son who tested positive. She experienced mild symptoms, primarily a stuffy nose, and was treated with Paxlovid, feeling better within two days. The patient is currently on Tagrisso 80 mg and follows up with her oncologist, Dr. Serrato. She had an EKG and echocardiogram recently, with the EKG reported as normal. A chest CT scan is planned for November. The patient reports improved breathing post-surgery but noted increased asthma symptoms over the summer, possibly due to humidity or allergens. She is using Symbicort, which has been beneficial. The patient frequently experiences earwax buildup, which is exacerbated by her use of hearing aids. Ear cleaning was performed during the visit. The patient has a scabbing lesion on her scalp, which she tends to pick at. She is scheduled to see a criminal intelligence analyst for evaluation and possible biopsy. Mammogram: 2023 Bone density: 2022 Eye exam: Dr. 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 Vitamin D deficiency Hypercholesterolemia Asthma Hypertension Surgical History History of lobectomy of lung H/O colonoscopy Hx of cystoscopy History of cataract surgery History of tonsillectomy S/P REED-BSO Social History Housing: House Alcohol intake: current Alcohol intake frequency: a few times a week Patient Tobacco Use Status: Former Tobacco user Tobacco use type: Cigarette Years Smoked: quit 1979 e-Cigarette/Vaping Use: Never Used Second Hand Smoke Exposure: Yes service: No Current occupational status: retired Cognitive needs: No Hearing needs: No Vision needs: No Questionnaire Medicare Wellness Checkup [age] What gender do you identify with?: female During the past 4 weeks, how much have you been bothered by emotional problems such as feeling anxious, depressed, irritable, sad or downhearted, and blue?: not at all During the past 4 weeks, has your physical & emotional health limited your social activities with family, friends, neighbors, or groups?: not at all During the past 4 weeks, how much bodily pain have you generally had?: very mild pain During the past 4 weeks, was someone available to help you if you needed & wanted help?: yes, as much as I wanted During the past 4 weeks, what was the hardest physical activity you could do for at least 2 minutes?: heavy Can you get to places out of walking distance without help? (For eg., can you travel alone on buses, taxis or drive your car?): Yes Can you go shopping for groceries or clothes without someone's help?: Yes Can you prepare your own meals?: Yes Can you do your housework without help?: Yes Because of any health problems, do you need the help of another person with your personal care needs such as eating, bathing, dressing or getting around the house?: No Can you handle your own money without help?: Yes During the past 4 weeks, how would you rate your health in general?: excellent During the past 4 weeks how have things been going for you?: very well; could hardly better Are you having difficulties driving your car?: no Do you always fasten your seat belt when you are in a car?: yes, usually During past 4 weeks, have you been bothered by the following: never: Falling or dizzy when standing up, Sexual problems?, Trouble eating well?, Teeth or denture problems?, Problems using the telephone? and Tiredness or fatigue? Have you fallen 2 or more times in the past year?: No Are you afraid of falling?: Yes Are you a smoker?: no During the past 4 weeks, how many drinks of wine, beer, or other alcoholic beverages did you have?: 2-5 drinks per week Do you exercise for about 20 minutes 3 or more times a week?: yes, all the time Have you been given information to help with the following?: no: Hazards in your house that might hurt you? and no: Keeping track of your medications? How often do you have trouble taking medicines the way you have been told to take them?: I always take medicine as prescribed How confident are you that you can control & manage most of your health problems?: very confident What is your race?: White PHQ-9 Over the last 2 weeks, how often have you been bothered by any of the following problems? 1. Little interest or pleasure in doing things: not at all 2. Feeling down, depressed, or hopeless: not at all 3. Trouble falling or staying asleep, or sleeping too much: not at all 4. Feeling tired or having little energy: not at all 5. Poor appetite or overeating: not at all 6. Feeling bad about yourself - or that you are a failure or have let yourself or your family down: not at all 7. Trouble concentrating on things, such as reading the newspaper or watching television: not at all 8. Moving or speaking so slowly that other people could have noticed. Or the opposite - being so fidgety or restless that you have been moving around a lot more than usual: not at all 9. Thoughts that you would be better off or of hurting yourself in some way: not at all Total score: 0 Depression Screening Interpretation: Negative Depression Screening Done: Yes Source: Developed by Drs. Luis Massey, Cassia Torres, Thiago Leung and colleagues, with an educational claudette from [employer]. Thrive Questionnaire Date Thrive assessed: 07/17/24 I am a: Patient What is your living situation today?: I have a steady place to live Within the past 12 months, did the food you bought not last and you didn't have the money to get more?: Never true Within the past 12 months, did you worry whether your food would run out before you got money to buy more?: Never true Do you have trouble paying for medicines?: No Do you have trouble getting transportation to medical appointments?: No Do you have trouble paying your heating and electricity bill?: No Do you have trouble taking care of your child, family member or friend?: No Do you have trouble with day-to-day activities such as bathing, preparing meals, shopping, managing finances, etc.?: No Are you currently unemployed and looking for a job?: No Are you interested in more education?: No Please select the resources that you would like help with: None Currently or been in a relationship where the following occur: No concerns reported THRIVE Score: 0 ATILIO-7 AMB Questionnaire ATILIO-7 Date ATILIO - 7 assessed: 05/17/24 Source: Developed by Drs. Luis Massey, Cassia Torres, Thiago Leung and colleagues, with an educational claudette from [employer]. Review of Systems Const Denies body aches, Denies fatigue, Denies fever(s), Denies frequent falls, Denies headache(s) and Denies weakness Eyes Reports no additional complaints and Denies change in vision ENT Denies dysphagia, Denies dizziness, Denies facial pain, Denies headache(s), Denies nasal congestion and Denies odynophagia Card Denies chest pain, Denies syncope, Denies irregular heart rhythm, Denies leg edema, Denies lightheadedness and Denies dyspnea Resp Denies cough and Denies dyspnea GI Denies abdominal pain, Denies constipation, Denies dysphagia, Denies dyspepsia, Reports diarrhea (occasional ), Denies nausea, Denies odynophagia and Denies vomiting Details: no hematuria Denies urinary frequency, Denies dysuria, Denies urinary hesitancy and Denies urinary urgency Musc Denies back pain and Denies myalgias Skin/Breast Reports system reviewed and no additional complaints, except as documented Neuro Denies dizziness, Denies syncope, Denies frequent falls, Denies headache(s) and Denies weakness Psych Reports no additional complaints Endo Denies fatigue Physical Exam Vital Signs: Last Vital Signs Temp 97.3 F 10/31/24 08:10 Pulse 74 10/31/24 08:10 BP 110/60 10/31/24 08:10 Pulse Ox 99 10/31/24 08:10 Oxygen Delivery Method Room Air 10/31/24 08:10 BMI result Body Mass Index 25.3 Const General: cooperative, healthy appearing, comfortable and no acute distress Orientation/consciousness: patient oriented x3 HEENT Head: Yes normocephalic Ears: hearing grossly normal bilaterally, external ears normal, TM's normal bilaterally and EAC's normal General nose exam: Normal external nose present Face and sinus: Yes normal facial exam and Yes sinuses nontender Mouth: Normal oral and palatal mucosa present and tongue normal Throat: Yes posterior oropharynx normal Eyes General: appearance normal, both eyes and all related structures Conjunctivae: conjunctivae normal Pupils: Equal, round and reactive pupils present EOM: EOMs intact bilaterally and No Nystagmus present Neck Neck: Yes normal visual inspection, Yes full ROM and Yes no lymphadenopathy Chest Chest palpation & inspection: normal inspection of the chest Resp Effort & Inspection: normal respiratory effort Auscultation: clear to auscultation bilaterally, no crackles, no rales, no rhonchi, no wheezes and breath sounds present Cardio Rate: regular rate Rhythm: regular rhythm Peripheral pulses: radial pulses present and dorsalis pedis present GI Inspection: Yes normal to inspection and No Abdominal wall edema Palpation (GI): Soft to palpation, not firm and nontender Auscultation: normal bowel sounds Rectal Exam - Female: deferred General: Yes no CVA tenderness Back/Spine/Pelvis Back: no CVA tenderness Skin General skin exam: no rashes or lesions noted Neuro General: patient oriented x3 Cranial nerves: Yes Equal, round and reactive pupils present, Yes Midline tongue present, Yes Ability to bilaterally elevate shoulders present and No Nystagmus present Gait exam (Neuro): Normal gait present Extrem General: Yes normal to inspection, Yes full ROM, No no pedal edema and No edema Psych Speech and movement: Normal speech and movement present Affect: normal affect Insight: Good insight present (Psych) Judgement: Good judgement present (Psych) Office Procedures Cerumen Removal From which ear canal was the cerumen removed: bilateral Removal: cerumen loop/spoon Notes: patient tolerated procedure well, no complications and ear canal clear [id number] Wax Removal by Spoon/Curette Assessment & Plan Assessment & Plan (1) Medicare annual wellness visit, subsequent: Code(s): Z00.00 - Encounter for general adult medical examination without abnormal findings Plan: Patient is up-to-date on all recommended routine screenings and vaccinations for her age. Blood work is up-to-date and has been reviewed with the patient today. [place] of care was reviewed with patient patient was provided with a written screening schedule. Healthcare proxy/ MOLST forms were reviewed with patient patient advised to bring completed forms to office to be scanned to chart Healthy diet and regular exercise is encouraged. (2) Hypertension: Code(s): I10 - Essential (primary) hypertension Qualifiers: Hypertension type: essential hypertension Qualified Code(s): I10 - Essential (primary) hypertension Plan: Continue on current blood pressure medication. Avoid salt intake and encourage healthy diet and regular exercise. (3) Hypercholesterolemia: Code(s): E78.00 - Pure hypercholesterolemia, unspecified Plan: Avoid foods that are high in cholesterol such as red meat, fried foods, eggs and baked goods. Triglyceride goal of less than 150 and LDL goal of less than 100. (4) Impaired glucose tolerance: Code(s): R73.02 - Impaired glucose tolerance (oral) Plan: Decrease the amount of carbohydrates such as pasta, bread, rice, and potatoes and limit the amount of sweets. Although fruits are generally healthy they should be eaten in moderation as they are still high in sugar. (5) Osteopenia: Code(s): M85.80 - Other specified disorders of bone density and structure, unspecified site Plan: Recommend continuing with increased calcium through dietary means and Vitamin D supplementation. (6) Colon cancer screening: Code(s): Z12.11 - Encounter for screening for malignant neoplasm of colon Plan: Completed in 2023 continue to follow with GI. 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 Serrato. Recent EKG was normal, and a chest CT scan is planned for November. Continued monitoring and follow-up with oncology are advised. (8) Bladder cancer: Comment: Dr. Coyle 06/18/2022 bladder cancer - cystoscopy q 3 months Code(s): C67.9 - Malignant neoplasm of bladder, unspecified Plan: Continue to follow with Urology and recent cystoscopy was normal. (9) Asthma: Comment: Mild intermittent Code(s): J45.909 - Unspecified asthma, uncomplicated Qualifiers: Asthma complication type: uncomplicated Asthma persistence: intermittent Asthma severity: mild Qualified Code(s): J45.20 - Mild intermittent asthma, uncomplicated Plan: The patient reports improved asthma symptoms with the use of Symbicort. No acute exacerbations noted. Continued use of Symbicort is recommended, and the patient should monitor for any changes in symptoms. (10) Impacted cerumen of both ears: Code(s): H61.23 - Impacted cerumen, bilateral Plan: The patient experiences frequent earwax buildup, exacerbated by hearing aid use. Ear cleaning was performed during the visit. Regular monitoring and cleaning as needed are advised. (11) Scalp lesion: Code(s): L98.9 - Disorder of the skin and subcutaneous tissue, unspecified Plan: The patient has a scabbing lesion on her scalp and is scheduled to see a criminal intelligence analyst for evaluation and possible biopsy. Monitoring for changes in the lesion is recommended. Plan This note was constructed using voice recognition software. While every effort has been made to ensure accuracy and millstone cleaner, still areas may have been included sometimes these areas may affect the content or meeting of the given symptoms. Total time spent caring for the patient today was 30 minutes. This includes time spent before the visit reviewing the chart, time spent during the visit, and time spent after the visit and documentation. Patient was informed and verbally consented to the use of an ambient scribe for clinic note documentation during this visit. Orders: Orders XR DEXA axial skeleton Today Z78.0 - Asymptomatic menopausal state Lipid Panel Today E78.00 - Pure hypercholesterolemia, unspecified Comprehensive Met. Panel Today R73.02 - Impaired glucose tolerance (oral), Z00.00 - Encounter for general adult medical examination without abnormal findings TSH reflex Free T4 Today Z13.29 - Encounter for screening for other suspected endocrine disorder Hemoglobin A1c Today R73.02 - Impaired glucose tolerance (oral) Complete Blood Count Auto Diff Today I10 - Essential (primary) hypertension, Z00.00 - Encounter for general adult medical examination without abnormal findings Medications: Refilled budesonide-formoterol 80-4.5 mcg/actuation (Symbicort) 1 inh inhalation BID 10.2 grams 0RF I10 - Essential (primary) hypertension metoprolol tartrate 12.5 mg (1/2 x 25 mg) PO BID 90 tabs 0RF I10 - Essential (primary) hypertension atorvastatin 10 mg PO DAILY 90 tabs 1RF I10 - Essential (primary) hypertension amlodipine 10 mg PO DAILY 90 tabs 1RF I10 - Essential (primary) hypertension hydrochlorothiazide 12.5 mg PO QAM 90 tabs 3RF 90 days I10 - Essential (primary) hypertension albuterol sulfate 90 mcg/actuation 2 puffs PO Q4H PRN 8.5 grams 0RF bronchospasm I10 - Essential (primary) hypertension Quality Reporting (2019) Depression/Bipolar (159/160/161/177) PHQ-9: Total score: 0 Coding Level of Care Code Medicare Subsequent (G0439) Diagnoses Medicare annual wellness visit, subsequent Z00.00 Essential hypertension I10 Hypertension type: essential hypertension Hypercholesterolemia E78.00 Impaired glucose tolerance R73.02 Osteopenia M85.80 Colon cancer screening Z12.11 Adenosquamous carcinoma of lung C34.90 Bladder cancer C67.9 Mild intermittent asthma without complication J45.20 Asthma complication type: uncomplicated Asthma persistence: intermittent Asthma severity: mild Impacted cerumen of both ears H61.23 Scalp lesion L98.9 CPT Codes Advance Care Planning - Time spent: 1-15 minutes, not on file ([id number]) Office Procedure - CPT: 46168-[id number] Wax Removal by Spoon/Curette ([id number]) Advance Care Planning Advance Care Planning discussion: Completed/Scanned Date of discussion: 10/31/24 Who was present: patient, myself Forms completed: MOLST Time spent: 1-15 minutes, not on file Actual minutes spent: 2
[2024-10-31 08:10] VITALS: BP 110/60; PULSE 74; TEMP 36.3; O2SAT 99; BMI 25.3
== END 2024-10-31 08:47 | disposition home or self-care (01) ==
LOC: HO.HMCH 07:58
PROVIDERS: PCP Internal Medicine
DX: Z00.00 Encounter for general adult medical examination without abnormal findings (principal); I10 Essential (primary) hypertension; C34.90 Malignant neoplasm of unspecified part of unspecified bronchus or lung; C67.9 Malignant neoplasm of bladder, unspecified; E78.00 Pure hypercholesterolemia, unspecified; R73.02 Impaired glucose tolerance (oral); M85.80 Other specified disorders of bone density and structure, unspecified site; Z12.11 Encounter for screening for malignant neoplasm of colon; J45.20 Mild intermittent asthma, uncomplicated; H61.23 Impacted cerumen, bilateral; L98.9 Disorder of the skin and subcutaneous tissue, unspecified

== ENCOUNTER → 2024-10-31 07:57 | Outpatient (BNVA) | payer MEDICARE, OTHER, SELFPAY | PROVIDERS: PCP Internal Medicine | DX: Z00.00 Encounter for general adult medical examination without abnormal findings (principal); I10 Essential (primary) hypertension; J45.909 Unspecified asthma, uncomplicated; E78.00 Pure hypercholesterolemia, unspecified; M85.80 Other specified disorders of bone density and structure, unspecified site; C67.9 Malignant neoplasm of bladder, unspecified; J45.20 Mild intermittent asthma, uncomplicated; H61.23 Impacted cerumen, bilateral; L98.9 Disorder of the skin and subcutaneous tissue, unspecified; R73.02 Impaired glucose tolerance (oral); Z78.0 Asymptomatic menopausal state; Z79.899 Other long term (current) drug therapy | CPT/HCPCS: 69210; 96127 ==

== ENCOUNTER 2024-11-24 09:50 | Outpatient (REF) | payer MEDICARE, OTHER, SELFPAY ==
--- OUTSIDE RECORDS SUMMARY | 2020-10-17 10:01 | XMS_ITS | Encounter Summary ---
Author Organization [facility] Address [address] [place] [phone] Phone Care Team Providers Care Fruit Cutter Name Role Phone Mikel Stewart MD Primary Care Provider [phone] Encounter Details Date Type Department Care Team (Late st Contact Info) Description 10/17/2020 10:01 AM EDT Hospital Encounter [facility] [address] [place] [phone] Falguni Lozano FNP [address] [place] [phone] [email or web address] Social History Tobacco Use Types Packs/Day Years [...] intra-articular distal radial fracture asdescribed. Falguni Lozano PATTERN MARKER IMG XR UPPER EXTREMITY Serena l Result documented in this encounter Visit Diagnoses Not on filedocumented in this encounter Care Teams Fruit Cutter Relationship Specialty Start Date End Date Mikel Stewart MD [address] [place] [address] Drive [address] [place] [address] PCP - General Internal Medicine 10/17/20 documented as of this encounter Additional Source Comments The information contained in this document represents components of the legal health record. It is not the complete legal health record.[facility]
[2024-11-24 10:08] LABS: MANUAL DIFF FLAG NO
--- OUTSIDE RECORDS SUMMARY | 2024-11-24 10:29 | XMS_ITS | Encounter Summary ---
Author Organization [facility] Address [address] [place] [id number] Phone Care Team Providers Care Gear Milling Machine Set Up Operator Name Role Phone Mikel Stewart MD Primary Care Provider [phone] Encounter Details Date Type Department Care Team (Late st Contact Info) Description 10/31/2020 Ancillary Orders [address] [address] Darek Whitfield PA-C [address] [place] [address] Orthopedics & Sports Medicine, [place] [address] [email or web address] Right wrist pain Social History Tobacco [...] forearm documented in this encounter Care Teams Gear Milling Machine Set Up Operator Relationship Specialty Start Date End Date Mikel Stewart MD [address] [place] [address] [address] [place] [address] PCP - General Internal Medicine 10/17/20 documented as of this encounter Additional Source Comments The information contained in this document represents components of the legal health record. It is not the complete legal health record.[facility]
--- OUTSIDE RECORDS SUMMARY | 2024-11-24 10:29 | XMS_ITS | Encounter Summary ---
Author Organization [facility] Address [address] [place] [address] Care Team Providers Care Etcher Electrolytic Name Role Phone Physician, Pcp Unknown Primary Care Provider Mariam vailable Encounter Details Date Type Department Care Team (Late st Contact Info) Description 08/09/2024 Lab Requisition [facility] Lab [address] [facility] [place] [address] Atul Coyle MD [address] [facility] [address] [place] [address] Personal history of malignant neoplasm of bladder [...] AM EDT) Final Diagnosis A. Urine, Voided, ([id number]): Negative for high grade urothelial carcinoma. Results of UroVysion fluorescence in situ hybridization (FISH) testing: CEP3: Normal CEP7: Normal CEP17: Normal LSI 9p21: Normal Interpretation: Normal profile Controls stained appropriately. Note: The results are intended as a screening device and should be interpreted in association with other clinical and pathological findings. 08/18/2024 9:34 AM EDT [facility] HOSPITAL LAB Clinical Information History of bladder neoplasm (malignant) Z85.51 Urine Cytology/FISH (now) 08/18/2024 9:34 AM EDT [facility] Gross Description A. Urine, Voided, ([id number]): Received one ThinPrep slide for cytology and one ThinPrep slide for UroVysion FISH 08/18/2024 9:34 AM EDT [facility] Disclaimer Unless otherwise specified, all tissue is 10% NB formalin fixed and paraffin embedded. Technical pathology services provided by [facility] at [address] [facility] [address], [place] [address] (CLIA #[id number]/Monet Mendez MD, Tooling Engineer) 08/18/2024 9:34 AM EDT [facility] Tissue Urine specimen from urethra / Unknown 08/02/2024 08/09/2024 3:21 PM EDT us Atul Coyle MD LAB PATHOLOGY ORDERABLES Fi nal Result [facility] [address] [place] [address], documented in this encounter Visit Diagnoses Diagnosis Personal history of malignant neoplasm of bladder documented in this encounter Care Teams Etcher Electrolytic Relationship Specialty Start Date End Date Physician, Pcp Unknown PCP - General 08/09/24 documented as of this encounter
--- OUTSIDE RECORDS SUMMARY | 2024-11-24 10:29 | XMS_ITS | Patient Health Record ---
Author Organization [facility] Address [address] [place] [id number] Care Team Providers Care Nurse Monitoring Name Role Phone Mikel Stewart MD Primary [...] Problem Status W/U Status Risk Notes Problem [id number] Colon cancer screening (Z12.11) Active confirmed Problem [id number] jail current use of diuretic (Z79.899) Active confirmed Plan Of Treatment Future Test Test Name Order Date COLONOSCOPY 03/01/2023 Insurance Providers Payer Name Payer Address Payer Phone Subscriber Number Group Number Insured Name Patient Relationship to Insured Coverage Start Date Coverage End Date MEDICARE OF [place] [address] [place] [address] [phone] [id number] Jing Basilio Self - patient is the insured [facility] [address] [place] [phone] [id number] Jing Basilio Self - patient is the insured Medical (General) History Medical History History ICD Code asthma Hypertension Hyperlipidemia Osteopenia Elevated blood sugar Vitamin D deficiency Fallopian tube cancer, chemotherapy Bladder tumor Surgical History Surgery Date(Month/Year) Total abdominal hysterectomy/omentectomy 2010 Cystoscopy/resection bladder cancer 2022
--- OUTSIDE RECORDS SUMMARY | 2024-11-24 10:29 | XMS_ITS | Encounter Summary ---
Author Organization [facility] Address [address] [facility] [address] [place] [phone] Phone Care Team Providers Care Advertising Strategist Name Role Phone Mikel Stewart MD Primary Care Provider [phone] Encounter Details Date Type Department Care Team (Late st Contact Info) Description 10/31/2020 Ancillary Orders [facility] Orthopedics & Sports Medicine [address] [place] [phone] Darek Whitfield PA-C [address] [place] [address] Orthopedics & Sports Medicine, [facility] [place], [place] [id number] [email or web address] Social History Tobacco Use Types Packs/Day Years [...] on filedocumented in this encounter Care Teams Advertising Strategist Relationship Specialty Start Date End Date Mikel Stewart MD [address] [place] [phone] PCP - General Internal Medicine 10/17/20 documented as of this encounter Additional Source Comments The information contained in this document represents components of the legal health record. It is not the complete legal health record.[facility]
--- OUTSIDE RECORDS SUMMARY | 2024-11-24 10:30 | XMS_ITS | Encounter Summary ---
Author Organization [facility] Address [address] [place] [address] Care Team Providers Care Armor Officer Name Role Phone Physician, Pcp Unknown Primary Care Provider Mraiam vailable Encounter Details Date Type Department Care Team (Late st Contact Info) Description 04/04/[address] [facility] - Main Lab [address] [facility] [place] [address] Atul Coyle MD [address] [facility] [address] [place] [address] Personal history of malignant neoplasm of bladder [...] AM EST) Final Diagnosis A. Urine, Voided, ([id number]): Negative for high grade urothelial carcinoma. 04/12/2024 4:04 PM EST [facility] Clinical Information History of bladder neoplasm (malignant) Z85.51 Urine cytology with reflex UroVysion (AUC/SHGUC) 04/12/2024 4:04 PM EST [facility] Gross Description A. Urine, Voided, ([id number]): Received is one ThinPrep slide for cytology. 04/12/2024 4:04 PM EST [facility] Disclaimer Unless otherwise specified, all tissue is 10% NB formalin fixed and paraffin embedded. Technical pathology services provided by [facility] [address] [facility] [address] [place] [address] (CLIA #[id number]/S kyle Mendez MD, Computer Operations Supervisor) 04/12/2024 4:04 PM EST [facility] Tissue Urine specimen from urethra / Unknown 03/31/2024 04/04/2024 11:03 AM EST us Atul Coyle MD LAB PATHOLOGY ORDERABLES Fi nal Result [facility] [address] [place] [address], documented in this encounter Visit Diagnoses Diagnosis Personal history of malignant neoplasm of bladder documented in this encounter Care Teams Armor Officer Relationship Specialty Start Date End Date Physician, Pcp Unknown PCP - General 08/09/24 documented as of this encounter
--- OUTSIDE RECORDS SUMMARY | 2024-11-24 10:30 | XMS_ITS | Clinical Summary ---
Author Organization [address] [facility] Address [address] [place] [address] Phone Care Team Providers Care Muck Boss Name Role Phone Physician, Pcp Unknown Primary Care Provider Mariam vailable Social History Tobacco Use Types Packs/Day Years [...] Patients (1 - 1-dose 75+ series) 07/21/2023 Depression Screening 02/23/2024 COVID-19 Vaccine (2023- season) 2024 Influenza Vaccine (#1) 2024 Breast Cancer Screening [...] Procedure Name Priority Date/Time Associated Diagnosis Comments [facility] SCREENING DIGITAL Routine 04/29/2023 1:18 PM EST Encounter for screening mammogram for malignant neoplasm of breast from Last 3 Months or Most Recently Relevant to Health Maintenance Results * [facility] SCREENING DIGITAL (04/29/2023 1:18 PM EST) Anatomical Region Laterality Modality Mammography 04/29/2023 9:06 AM EST Narrative 04/29/2023 1:18 PM EST [facility] Diagnostic Imaging Department [address] [place] [address] Patient: JING JONES Denis Arechiga./Age/Sex: 1950 - 72 - F Unit#: [id number] [facility] Ordering Physician: FELTON ESQUIVEL MD [facility] Screening Digital - 04/29/[address]24 Report Status:Signed EXAM: [facility] Screening Digital EXAM DATE AND TIME: 04/29/2023 9:25 AM HISTORY: Screening. Sister had breast carcinoma at age 62. COMPARISON: 04/27/22, 04/24/21, 04/22/20 TECHNIQUE: Bilateral digital breast tomosynthesis was performed in the CC and MLO projections. Computer aided detection with [employer] 3D 3.1 was employed. TISSUE DENSITY: a. [...] Date/Time: 04/29/23 1318 Sign date/Time: 04/29/23 1318 Procedure Note Latha Crow MD - 10/11/2023 [facility] Diagnostic Imaging Department [address] [place] [address] Patient: JING JONES/Age/Sex: 1950 - 72 - F Unit#: [id number] [facility] Ordering Physician: FELTON ESQUIVEL MD [facility] Screening Digital - 04/29/23 - 0925 Report Status:Signed EXAM: [facility] Screening Digital EXAM DATE AND TIME: 04/29/2023 9:25 AM HISTORY: Screening. Sister had breast carcinoma at age 62. COMPARISON: 04/27/22, 04/24/21, 04/22/20 TECHNIQUE: Bilateral digital breast tomosynthesis was performed in the CCand MLO projections. Computer aided detection with [employer] 3D 3.1was employed. TISSUE DENSITY: a. The [...] Recently Relevant to Health Maintenance Insurance MEDICARE [facility] [address] [place] [address] Care Teams Muck Boss Relationship Specialty Start Date End Date Physician, Pcp Unknown PCP - General 08/09/24
--- OUTSIDE RECORDS SUMMARY | 2024-11-24 10:30 | XMS_ITS | Clinical Summary ---
Author Organization [facility] Address [address] [place] [address] Phone Care Team Providers Care Wire Fence Erector Name Role Phone Mikel Stewart MD Primary Care Provider [phone] Allergies No known active allergies Medications hydroCHLOROthiaz [...] 1960 HEPATITIS C SCREENING 1966 OSTEOPOROSIS SCREENING INITIAL (ONE-TIME) 2013 RSV VACCINE (1 - 1-dose 75+ series) 07/21/2023 INFLUENZA VACCINE (#1) 2024 , 12/15/2018, 12/03/2017, Additional history exists COVID-19 VACCINE ( - 2024- season) 2024 05/08/2020, 04/16/2020 PNEUMOCOCCAL VACCINES (50+ years) Completed 01/31/2016, 11/01/2014 ZOSTER VACCINES Completed 12/13/2017, 09/22, 11/08/2012 SMOKING STATUS SCREENING (Once After 26 Yrs) Completed 01/20/2021 HEPATITIS A [...] file Insurance MEDICARE PART A & B MEDICARE SUPPLEMENT [...] Payer (Ef fective 2013-Present) Name:Jing Basilio Member ID:[id number] Relation to Subscriber:Self Name:Jing Basilio Subscriber ID:[id number] Payer ID:[id number] Group ID:Not on file Type:Medicare Address: [employer] [facility] [address] [facility] MEDICARE SUPPLEMENT Care Teams Wire Fence Erector Relationship Specialty Start Date End Date Mikel Stewart MD [address] [place] [address] [address] [place] [phone] PCP - General Internal Medicine 10/17/20 Additional Source Comments The information contained in this document represents components of the legal health record. It is not the complete legal health record.[facility]
[2024-11-24 10:38] LABS: Hematocrit 40.4 % (37.0-47.0); Hemoglobin 13.3 g/dl (12.0-16.0); Imm Gran Abs Auto 0.01 X10*3/uL (0.00-0.03); Imm Gran Pct Auto 0.2 % (0.0-0.4); Lymphocytes Absolute Auto 1.3 X10*3/uL (1.2-4.9); Mean Corpuscular HGB Conc 32.9 g/dl (31.0-35.0); Mean Corpuscular Hemoglobin 28.7 pg (27.0-33.0); Mean Corpuscular Volume 87.1 fL (80.0-98.0); NRBC Abs Auto 0.000 X10*3/uL (0.0-0.012); NRBC Pct Auto 0.0 /100WBC (0.0-0.2); Platelet Count 235 X10*3/uL (160-400); Red Blood Count 4.64 X10*6/uL (4.20-5.50); White Blood Count 6.5 X10*3/uL (4.8-10.8)
[2024-11-24 11:30] LABS: Alanine Aminotransferase 15 U/L (0-31); Albumin Level 4.7 g/dL (3.5-5.0); Alkaline Phosphatase 79 U/L (39-117); Anion Gap 12 (12-20); Aspartate Amino Transferase 27 U/L (5-31); Blood Urea Nitrogen 22 mg/dL (9-16); Calcium 9.4 mg/dL (8.4-10.2); Carbon Dioxide 27 mmol/L (22-29); Chloride 106 mmol/L (96-108); Cholesterol 196 mg/dL (<200); Estimated Glomerular Filt Rate > 60; HDL Cholesterol 66 mg/dL (>40); Potassium 3.8 mmol/L (3.3-5.1); Sodium 141 mmol/L (135-145); Total Protein 7.2 g/dL (6.5-8.0); Triglycerides 150 mg/dL (<150)
== END 2024-11-24 09:51 | disposition home or self-care (01) ==
LOC: HO.LAB 09:50
DX: Z00.00 Encounter for general adult medical examination without abnormal findings (principal); Z13.29 Encounter for screening for other suspected endocrine disorder; E78.00 Pure hypercholesterolemia, unspecified; R73.02 Impaired glucose tolerance (oral); I10 Essential (primary) hypertension
CPT/HCPCS: 36415; 80053; 80061; 83036; 84443; 85025

== ENCOUNTER 2025-01-17 08:03 | Outpatient (REF) | payer MEDICARE, OTHER, SELFPAY ==
--- OUTSIDE RECORDS SUMMARY | 2020-10-17 09:01 | XMS_ITS | Encounter Summary ---
Author Organization [facility] Address [address] [place] [id number] Phone Care Team Providers Care Keyboarding Teacher Name Role Phone Mikel Stewart MD Primary Care Provider [phone] Encounter Details Date Type Department Care Team (Late st Contact Info) Description 10/17/2020 10:01 AM EDT Hospital Encounter [facility] [address] [place] [id number] Falguni Lozano FNP [address] [place] [address] [email or web address] History Tobacco Use Types Packs/Day Years Used Date Smoking Tobacco: Never Smokeless Tobacco: Never Alcohol Use Standard Drinks/Week Comments Yes 0 (1 standard drink = 0.6 oz pur e alcohol) socially Education Answer Date Recorded Are you interested in more education? Not on camilo e 06/18/2022 Are you concerned about learning? Not on file 06/18/2022 No 06/18/2022 No 06/18/2022 Digital Access Answer Date Recorded No 07/19/2022 No 07/19/2022 No 07/19/2022 Reliable internet access at home? Not on file 07/19/2022 Device with a working camera? Not on file Comments Unknown Sex and Gender Information Value Date Recorded Sex Assigned at Not on file Legal Sex Female 5:11 PM EST Gender Identity Not on file Sexual Orientation Not on file documented as of this encounter Plan of Treatment Not on file documented as of this encounter Procedures Procedure Name Priority Date/Time Associated Diagnosis Comments XR WRIST 3 OR MORE VIEWS (RIGHT) Urgent/patient waiting 10/17/2020 10:07 AM EDT Fall, initial encounter documented in this encounter Results * XR WRIST 3 OR MORE VIEWS (RIGHT) (10/17/2020 10:07 AM EDT) Anatomical Region Laterality Modality Wrist Right Computed Radiogr aphy 10/17/2020 10:1 2 AM EDT Impressions 10/17/2020 10:14 AM EDT Impacted and angulated intra-articular distal radial fracture as described. Narrative 10/17/2020 10:14 AM EDT XR WRIST 3 OR MORE VIEWS (RIGHT) COMPARISON: None FINDINGS: Impacted, likely intra-articular fracture of the distal radial metaphysis with palmar angulation and displacement of the distal fracture fragment. There is associated surrounding soft tissue swelling. Mild degenerative change at the first CMC joint and its T joint. Procedure Note Lupe Mckeon MD - 10/17/2020 XR WRIST 3 OR MORE VIEWS (RIGHT) COMPARISON: None FINDINGS: Impacted, likely intra-articular fracture of the distal radial metaphysiswith palmar angulation and displacement of the distal fracture fragment.There is associated surrounding soft tissue swelling. Mild degenerativechange at the first CMC joint and its T joint. IMPRESSION: Impacted and angulated intra-articular distal radial fracture asdescribed. Falguni Lozano WATER RESOURCES TECHNICAL OFFICER IMG XR UPPER EXTREMITY Serena l Result documented in this encounter Visit Diagnoses Not on filedocumented in this encounter Care Teams Keyboarding Teacher Relationship Specialty Start Date End Date Mikel Stewart MD [address] [place] [address] Drive [address] [place] [address] PCP - General Internal Medicine 10/17/20 documented as of this encounter Additional Source Comments The information contained in this document represents components of the legal health record. It is not the complete legal health record.[facility]
--- NOTE | ~2025-01-17 | MM_ITS ---
STUDY: DUAL ENERGY X-RAY ABSORPTIOMETRY / DXA REASON FOR EXAM: Female, 74 years old Z78.0 - Asymptomatic menopausal state TECHNIQUE: Bone Mineral Density (BMD) measurements of the lumbar spine and left hip were obtained using [employer] COMPARISON: October 23, 2022 FINDINGS: L1-L4 BMD: 0.904 g/cm2 L1-L4 T score: -2.3. This corresponds to osteopenia. This represents a 0.6 % increase in bone density compared with prior exam from October 23, 2022. Left femoral neck BMD: 0.788 g/cm2 Left femoral neck T score: -1.8. This corresponds to osteopenia. Left total hip BMD: 0.819 g/cm2 Left total hip T score: -1.5. This corresponds to osteopenia. This represents a -4.8* % decrease in bone density compared with prior exam from October 23, 2022. * - Indicates a statistically significant change. FRAX score: 10 year risk of major osteoporotic fracture 19.7%, 10 year risk of hip fracture 4.6% MM/XR DEXA axial skeleton IMPRESSION: Osteopenia Reference Information: The T-score is the number of standard deviations above or below the standard which is normal for young adults at their peak bone mineral density. The World Health Organization (WHO) interprets the T-scores as follows: At or above -1 SD Normal bone density Between -1 and -2.5 SD Osteopenia At or below -2.5 SD Osteoporosis Electronically signed by: Gucci Kirkpatrick MD 01/17/2025 08:34 AM [facility]
--- OUTSIDE RECORDS SUMMARY | 2025-01-17 08:15 | XMS_ITS | Clinical Summary ---
Author Organization 299 [facility] Address [address] [place] [address] Phone Care Team Providers Care Nutrition Partner Name Role Phone Physician, Pcp Unknown Primary [...] series) 07/21/2023 Depression Screening 02/23/2024 COVID-19 Vaccine ( season) 2024 Influenza Vaccine (#1) 2024 Breast [...] Procedure Name Priority Date/Time Associated Diagnosis Comments [facility] SCREENING DIGITAL Routine 04/29/2023 1:18 PM EST Encounter for screening mammogram for malignant neoplasm of breast from Last 3 Months or Most Recently Relevant to Health Maintenance Results * [facility] SCREENING DIGITAL (04/29/2023 1:18 PM EST) Anatomical Region Laterality Modality Mammography 04/29/2023 9:06 AM EST Narrative 04/29/2023 1:18 PM EST [facility] Diagnostic Imaging Department [address] [place] [address] Patient: JING JONES Denis Arechiga./Age/Sex: 1950 - 72 - F Unit#: [id number] [facility] Ordering Physician: FELTON ESQUIVEL MD [facility] Screening Digital - 04/29/[address] Report Status:Signed EXAM: [facility] Screening Digital EXAM DATE AND TIME: 04/29/2023 9:25 AM HISTORY: Screening. Sister had breast carcinoma at age 62. COMPARISON: 04/27/22, 04/24/21, 04/22/20 TECHNIQUE: Bilateral digital breast tomosynthesis was performed in the CC and MLO projections. Computer aided detection with [employer] 3D 3.1 was employed. TISSUE DENSITY: a. [...] Procedure Note Latha Crow MD - 10/11/2023 [facility] Diagnostic Imaging Department [address] [place] [address] Patient: JING JONES/Age/Sex: 1950 - 72 - F Unit#: [id number] [facility] Mn[facility]Ordering Site: [facility] Ordering Physician: FELTON ESQUIVEL MD [facility] Screening Digital - 04/29/23 - 0925 Report Status:Signed EXAM: [facility] Screening Digital EXAM DATE AND TIME: 04/29/2023 9:25 AM HISTORY: Screening. Sister had breast carcinoma at age 62. COMPARISON: 04/27/22, 04/24/21, 04/22/20 TECHNIQUE: Bilateral digital breast tomosynthesis was performed in the CCand MLO projections. Computer aided detection with [employer] 3D 3.1was employed. TISSUE DENSITY: a. The [...] Recently Relevant to Health Maintenance Insurance MEDICARE [facility] [address] [place] [address] Care Teams Nutrition Partner Relationship Specialty Start Date End Date Physician, Pcp Unknown PCP - General 08/09/24
--- OUTSIDE RECORDS SUMMARY | 2025-01-17 08:15 | XMS_ITS | Patient Health Record ---
Author Organization [facility] Address [address] [place] [address] Care Team Providers Care Concrete Buildings Assembler Name Role Phone Mikel Stewart MD Primary Care Provider Balbir Knox Jr Unavailable Allergies Allergen (clinical drug ingredient) Drug/Non Drug Allergy documented on EMR Reaction Allergy Type Onset Date Status hayfever (uncoded) Unknown Allergy A ctive Reason For Referral No Information Medications Medication SIG (Take, Route, Frequency, Duration) Notes Start Date End Date Status amLODIPine Besylate 5 MG Tablet TAKE 1 T ABLET BY MOUTH DAILY Oral; Duration: 90 Active Atorvastatin Calcium 10 MG Tablet TAKE 1 TABLET BY MOUTH DAILY Oral; Duration: 90 Active Advair Diskus 250-50 MCG/ACT Aerosol Powder Breath Activated Inhalation; Duration: 90 Active hydroCHLOROthiazide 12.5 MG Tablet TAKE 1 TABLET BY MOUTH EVERY MORNING Oral; Duration: 90 Active MiraLax (colon prep) 17 GM/SCOOP Powder mixed with Gatorade or Crystal Light Orally begin at 5:00 p.m. the day before the procedure; Duration: 1 day 03/01/2023 Active Immunizations Vaccine Route Administration Date Status Comme nts Influenza Unknown 02/22/2023 Administered Social History Tobacco Use: Social History Observation Description Date Details (start date - stop date) Never Smoker NA - NA Social History Drugs/Alcohol: Social Info Question Answer Notes Alcohol Screen Did you have a drink containing alcohol in the past year? Yes How often did you have a drink containing alcohol in the past year? 2 to 3 times a week (3 points) How many drinks did you have on a typical day when you were drinking in the past year? 1 or 2 drinks (0 point) How often did you have 6 or more drinks on one occasion in the past year? Never (0 point) Points 3 Interpretation Positive Tobacco Use: Social Info Question Answer Notes Tobacco Use/Smoking Patient is a nonsmoker Additional Details Category Social Info Options Details Miscellaneous: Marital status: Occupation: retired Problems Problem Type SNOMED Code ICD Code Onset Dates Problem Status W/U Status Risk Notes Problem Colon cancer screening (501145910) Colon cancer screening (Z12.11) Active confirmed Problem Long-term current use of drug therapy (858538455) [facility] current use of diuretic (Z79.899) Active confirmed Plan Of Treatment Future Test Test Name Order Date COLONOSCOPY 03/01/2023 Insurance Providers Payer Name Payer Address Payer Phone Subscriber Number Group Number Insured Name Patient Relationship to Insured Coverage Start Date Coverage End Date MEDICARE OF [place] [address] [place] [address] [phone] [id number] Jing Basilio Self - patient is the insured [facility] [address] [place] [phone] [id number] Jing Basilio Self - patient is the insured Medical (General) History Medical History History ICD Code asthma Hypertension Hyperlipidemia Osteopenia Elevated blood sugar Vitamin D deficiency Fallopian tube cancer, chemotherapy Bladder tumor Surgical History Surgery Date(Month/Year) Total abdominal hysterectomy/omentectomy 2010 Cystoscopy/resection bladder cancer 2022
--- OUTSIDE RECORDS SUMMARY | 2025-01-17 08:15 | XMS_ITS | Encounter Summary ---
Author Organization [facility] Address [address] [place] [address] Care Team Providers Care Dead Mail Checker Name Role Phone Physician, Pcp Unknown Primary Care Provider Mariam vailable Encounter Details Date Type Department Care Team (Late st Contact Info) Description 08/09/2024 Lab Requisition [facility] - Main Lab [address] [facility] [place] [address] Atul Coyle MD [address] [facility] [address] [place] [address] Personal history of malignant neoplasm of bladder [...] AM EDT) Final Diagnosis A. Urine, Voided, ([id number]): Negative for high grade urothelial carcinoma. Results of UroVysion fluorescence in situ hybridization (FISH) testing: CEP3: Normal CEP7: Normal CEP17: Normal LSI 9p21: Normal Interpretation: Normal profile Controls stained appropriately. Note: The results are intended as a screening device and should be interpreted in association with other clinical and pathological findings. 08/18/2024 9:34 AM EDT [facility] Clinical Information History of bladder neoplasm (malignant) Z85.51 Urine Cytology/FISH (now) 08/18/2024 9:34 AM EDT [facility] Gross Description A. Urine, Voided, ([id number]): Received one ThinPrep slide for cytology and one ThinPrep slide for UroVysion FISH 08/18/2024 9:34 AM EDT [facility] Disclaimer Unless otherwise specified, all tissue is 10% NB formalin fixed and paraffin embedded. Technical pathology services provided by [facility]rology at [address] [facility] [address], [place] [address] (CLIA #[id number]/Monet Mendez MD, Cyber Security Architect) 08/18/2024 9:34 AM EDT [facility] Tissue Urine specimen from urethra / Unknown 08/02/2024 08/09/2024 3:21 PM EDT us Atul Coyle MD LAB PATHOLOGY ORDERABLES Fi nal Result [facility] [address] [place] [address], documented in this encounter Visit Diagnoses Diagnosis Personal history of malignant neoplasm of bladder documented in this encounter Care Teams Dead Mail Checker Relationship Specialty Start Date End Date Physician, Pcp Unknown PCP - General 08/09/24 documented as of this encounter
--- OUTSIDE RECORDS SUMMARY | 2025-01-17 08:15 | XMS_ITS | Encounter Summary ---
Author Organization [facility] Address [address] [place] [address] Care Team Providers Care Application Engineer Name Role Phone Physician, Pcp Unknown Primary Care Provider Mariam vailable Encounter Details Date Type Department Care Team (Late st Contact Info) Description 04/04/2024 Lab Requisition [facility] - Main Lab [address] [facility] [place] [address] Atul Coyle MD [address] [facility] [address] [place] [address] Personal history of malignant neoplasm of bladder [...] AM EST) Final Diagnosis A. Urine, Voided, ([id number]): Negative for high grade urothelial carcinoma. 04/12/2024 4:04 PM EST [facility] Clinical Information History of bladder neoplasm (malignant) Z85.51 Urine cytology with reflex UroVysion (AUC/SHGUC) 04/12/2024 4:04 PM EST [facility] Gross Description A. Urine, Voided, ([id number]): Received is one ThinPrep slide for cytology. 04/12/2024 4:04 PM EST [facility] Disclaimer Unless otherwise specified, all tissue is 10% NB formalin fixed and paraffin embedded. Technical pathology services provided by [facility] [address] [facility] [address] [place] [address] (CLIA #[id number]/S kyle Mendez MD, Arc Furnace Operator) 04/12/2024 4:04 PM EST [facility] Tissue Urine specimen from urethra / Unknown 03/31/2024 04/04/2024 11:03 AM EST us Atul Coyle MD LAB PATHOLOGY ORDERABLES Fi nal Result [facility] [address] [place] [address], documented in this encounter Visit Diagnoses Diagnosis Personal history of malignant neoplasm of bladder documented in this encounter Care Teams Application Engineer Relationship Specialty Start Date End Date Physician, Pcp Unknown PCP - General 08/09/24 documented as of this encounter
--- OUTSIDE RECORDS SUMMARY | 2025-01-17 08:15 | XMS_ITS | Encounter Summary ---
Author Organization [facility] Address [address] [facility] [address] [place] [address] Phone Care Team Providers Care Supervisor Cutting And Sewing Room Name Role Phone Mikel Stewart MD Primary Care Provider Encounter Details Date Type Department Care Team (Late st Contact Info) Description 10/31/2020 Ancillary Orders [facility] Orthopedics & Sports Medicine [address] [place] [address] [id number] Darek Whitfield PA-C [address] [place] [address] Orthopedics & Sports Medicine, [facility]. [place], [place] [id number] [email or web address] Social History Tobacco Use Types Packs/Day Years [...] on filedocumented in this encounter Care Teams Supervisor Cutting And Sewing Room Relationship Specialty Start Date End Date Mikel Stewart MD [address] [facility] [address] [place] [phone] PCP - General Internal Medicine 10/17/20 documented as of this encounter Additional Source Comments The information contained in this document represents components of the legal health record. It is not the complete legal health record.[facility]
--- OUTSIDE RECORDS SUMMARY | 2025-01-17 08:15 | XMS_ITS | Clinical Summary ---
Author Organization [facility] Address [address] [place] [address] Phone Care Team Providers Care Gore Seamer Name Role Phone Mikel Stewart MD Primary Care Provider [phone] Allergies No known active allergies Medications hydroCHLOROthiaz [...] Payer (Ef fective 2013-Present) Name:Jing Basilio Member ID:[id number] Relation to Subscriber:Self Name:Jing Basilio Subscriber ID:[id number] Payer ID:[id number] Group ID:Not on file Type:Medicare Address: [employer] [facility].[address] [address] [facility] MEDICARE SUPPLEMENT Care Teams Gore Seamer Relationship Specialty Start Date End Date Mikel Stewart MD [address] [place] [address] [address] [place] [phone] PCP - General Internal Medicine 10/17/20 Additional Source Comments The information contained in this document represents components of the legal health record. It is not the complete legal health record.[facility]
--- OUTSIDE RECORDS SUMMARY | 2025-01-17 08:15 | XMS_ITS | Encounter Summary ---
Author Organization [facility] Address [address] [place] [phone] Phone Care Team Providers Care Dog Sitter Name Role Phone Mikel Stewart MD Primary Care Provider [phone] Encounter Details Date Type Department Care Team (Late st Contact Info) Description 10/31/2020 Ancillary Orders [address] [address] Darek Whitfield PA-C [address] [place] [address] Orthopedics & Sports Medicine, [place] [address] [email or web address] Right wrist pain [...] forearm documented in this encounter Care Teams Dog Sitter Relationship Specialty Start Date End Date Mikel Stewart MD [address] [place] [address] [address] [place] [address] PCP - General Internal Medicine 10/17/20 documented as of this encounter Additional Source Comments The information contained in this document represents components of the legal health record. It is not the complete legal health record.[facility]
== END 2025-01-17 08:04 | disposition home or self-care (01) ==
LOC: HO.MAMMO 08:03
PROVIDERS: PCP Internal Medicine
DX: Z78.0 Asymptomatic menopausal state (principal)
CPT/HCPCS: 77080

== ENCOUNTER → 2025-01-17 08:15 | Outpatient (BNV) | payer MEDICARE, OTHER, SELFPAY | PROVIDERS: PCP Internal Medicine; Visit Provider Radiology Body Imaging | DX: E28.39 Other primary ovarian failure (principal) | CPT/HCPCS: 77080 ==